=== PATIENT | female | born 1940 | race Caucasian/White ===

== ENCOUNTER 2024-01-07 11:06 | Inpatient (IN) | payer MEDICARE, BC, SELFPAY ==
[2024-01-05] VITALS (8 sets, daily range): BP systolic 88–133; BP diastolic 60–87; BMI 24.8
[2024-01-05 18:07] LABS: Glucose - Point of Care 145 mg/dl (70-99)
--- NOTE | 2024-01-05 18:20 | ED.GENMED ---
History of Present Illness
<Destiney Schaffer LUNCHROOM MONITOR - Last Filed: 01/05/24 23:27>
General
Chief Complaint: Swelling
Source: patient and [facility] records
Exam Limitations: dementia
Time Seen by Provider: 01/05/24 18:15
History of Present Illness
History of Present Illness:
83-year-old female from [facility] with history of ambulatory dysfunction, anxiety, dementia, HTN presents for anterior neck swelling. She is a poor historian due to dementia.She denies pain, knows she's 'in a hospital.'
States 'sometimes' when asked if her neck or throat hurt.
Past History
<Destiney Schaffer LUNCHROOM MONITOR - Last Filed: 01/05/24 23:27>
Past History
ED Past Medical History: HTN and Psychiatric (Dementia)
ED Past Surgical History: Cholecystectomy and Gynecological (-)
Social History
Personal:
Living: with family
Employment: Employed (works at [email or web address]. Has been there for years, nothing different done at work.)
Review of Systems
<Destiney Schaffer LUNCHROOM MONITOR - Last Filed: 01/05/24 23:27>
Review of Systems
Allergies reviewed?: Yes
All Other Systems: ROS reviewed and negative except as documented in HPI and ROS
Constitutional: Denies fever
EENT: Reports other (swelling anterior neck); Denies sore throat
Respiratory: Denies cough or trouble breathing
Cardiac: Denies chest pain
ABD/GI: Denies abdominal pain, vomiting or diarrhea
: Reports incontinence
Musculoskeletal: Denies edema
Phy Exam
<Destiney Schaffer, LUNCHROOM MONITOR - Last Filed: 01/05/24 23:27>
Physical Exam
Physical Exam:
GENERAL: No acute distress. Alert, oriented to name, 'hospital.'
CONSTITUTIONAL: Afebrile.
EYES: PERRL, conjunctivae normal
Neck: mildly erythematous large firm mass anterior neck, tender to palpate.
ENMT: moist mucus membranes, No swelling of tongue or sub ungual area. Pharynx nl, speaking and swallowing well
RESPIRATORY: Regular respirations, nonlabored, lungs clear.
CARDIOVASCULAR: Regular rate and rhythm, no murmurs, no rubs.
GI: Soft, nontender, normal BS
MUSCULOSKELETAL: Well perfused. No edema
SKIN: Warm, dry, pink
PSYCH: Normal mood and affect.
NEUROLOGIC: Awake, alert and oriented x 2. Demented. No focal neurological deficits
Scores
<Destiney Schaffer, LUNCHROOM MONITOR - Last Filed: 01/05/24 23:27>
Heart Failure Risk
Heart Failure Risk Score: Not Applicable
Course
<Destiney Schaffer, LUNCHROOM MONITOR - Last Filed: 01/05/24 23:27>
Orders/Labs/Results
Orders:
Orders
01/05/24 18:20
0.9% Sodium Chloride 500 ml [Nss] 500 ml IV BOLUS
01/05/24 19:14
Complete Blood Count/With Diff Urgent
Comprehensive Metabolic Panel Urgent
01/05/24 20:07
CT Neck With Iv Contrast Urgent
Comment:
Reason For Exam: large mass anterior neck
01/05/24 21:26
Clindamycin 600 mg/50 ml [Cleocin] 600 mg in 50 ml IV NOW
01/05/24 22:06
Dexamethasone Sod Phosphate [Decadron] 10 mg IV NOW STA
01/05/24 22:11
ENT CONSULT Urgent
Consulting Provider: Zev Myers
Was physician already notified: Yes
Reason for Consult: neck swelling, sialadenitis parotid and submandibular
01/05/24 23:00
Flush (0.9% Sodium Chloride) [Flush (Nss)] See Dose Instructions IV PER PROTOCOL
01/06/24 01:39
HydrOXYZINE [Atarax] 25 mg PO Q6HPRN PRN
01/06/24 01:40
Admit/Transfer Patient As Directed
Co-Sign Provider:
Level of Care: Observation services
Assign to:: Medical/Surgical
Physician / Group: hospitalist
Diagnosis: sialadenitis
01/06/24 01:41
Code Status As Directed
Resuscitation Status: Full Code
PRN Pain Medication Management As Directed
May give lesser potent ordered pain med per pt: Yes
preference::
Protocol:: Medication orders for pain may be administered in a
manner that supports deferring to patient preference
when the pt is:
- Requesting an ordered lesser potent pain medication.
Least to most potent pain medications are defined
as: acetaminophen < NSAID < tramadol < opioids
(morphine, oxycodone, hydromorphone).
- Requesting a lesser dose of the same medication IF
ORDERED.
- Requesting a less intrusive route of administration
if both routes are prescribed by the provider (PO <
IV).
01/06/24 01:57
Acetaminophen [Tylenol] 650 mg PO Q4HPRN PRN
Bisacodyl [Dulcolax] 10 mg RECTAL [id number] PRN
Docusate W/Senna [Senokot-S] 1 tablet PO BIDPRN PRN
Polyethylene Glycol Powder [Miralax] 17 grams PO DAILYPRN PRN
01/06/24 01:57
Activity As Directed
Activity Level: With Assistance
Vital Signs As Directed
Frequency: Per unit guidelines
DX Deep Vein Thrombosis Video Routine
01/06/24 05:52
Basic Metabolic Panel IN AM
Complete Blood Count/No Diff IN AM
01/06/24 Breakfast
Regular
At Your Request: Full Participation
Ampicillin/Sulbactam 3 G [Unasyn] 3 gm 0.9% Sodium Chloride 100 ml [Nss] 100 ml IV Q6H
01/06/24 08:00
Atenolol [Tenormin] 50 mg PO DAILY
Buspirone [Buspar] 5 mg PO BID
Donepezil [Aricept] 5 mg PO DAILY
01/06/24 18:00
Enoxaparin Sodium [Lovenox] 40 mg SC QPM
Abnormal Lab Results
01/05/24 01/05/24
18:01 19:14
WBC 20.9 H 10^3/uL
(4.8-10.8)
RBC 3.90 L 10^6/uL
(4.20-5.40)
Hct 36.0 L %
(37.0-47.0)
MCH 31.3 H pg
(27.0-31.0)
Abs Immat Gran (auto) 0.1 H 10^3/uL
(0-0.05)
Absolute Neuts (auto) 16.8 H 10^3/uL
(1.4-6.5)
Absolute Monos (auto) 0.9 H 10^3/uL
(0.1-0.6)
Immature Gran % 0.6 H %
(0-0.5)
Neutrophils % 80.7 H %
(42.2-75.2)
Lymphocytes % 14.1 L %
(20.5-51.1)
Potassium 3.2 L mmol/L
(3.5-5.1)
Chloride 96 L mmol/L
(98-107)
BUN 27 H mg/dl
(7-17)
Glucose 127 H mg/dl
(70-99)
Albumin 3.2 L g/dl
(3.5-5.0)
POC Glucose 145 H mg/dl
(70-99)
01/05/24 19:14
01/05/24 19:14
Vital Signs
Initial and Last Documented VS:
Initial Vital Signs
Temp Pulse Resp BP Pulse Ox
98.2 F 88 18 88/60 100
01/05/24 18:04 01/05/24 18:04 01/05/24 18:04 01/05/24 18:04 01/05/24 18:04
Last Documented Vital Signs
Temp Pulse Resp BP Pulse Ox
98.1 F 71 16 123/61 95
01/06/24 09:11 01/06/24 09:11 01/06/24 09:11 01/06/24 07:00 01/06/24 11:22
<Mabel Everett MD - Last Filed: 01/06/24 12:34>
Orders/Labs/Results
Orders:
Orders
01/05/24 18:20
0.9% Sodium Chloride 500 ml [Nss] 500 ml IV BOLUS
01/05/24 19:14
Complete Blood Count/With Diff Urgent
Comprehensive Metabolic Panel Urgent
01/05/24 20:07
CT Neck With Iv Contrast Urgent
Comment:
Reason For Exam: large mass anterior neck
01/05/24 21:26
Clindamycin 600 mg/50 ml [Cleocin] 600 mg in 50 ml IV NOW
01/05/24 22:06
Dexamethasone Sod Phosphate [Decadron] 10 mg IV NOW STA
01/05/24 22:11
ENT CONSULT Urgent
Consulting Provider: Zev Myers
Was physician already notified: Yes
Reason for Consult: neck swelling, sialadenitis parotid and submandibular
01/05/24 23:00
Flush (0.9% Sodium Chloride) [Flush (Nss)] See Dose Instructions IV PER PROTOCOL
01/06/24 01:39
HydrOXYZINE [Atarax] 25 mg PO Q6HPRN PRN
01/06/24 01:40
Admit/Transfer Patient As Directed
Co-Sign Provider:
Level of Care: Observation services
Assign to:: Medical/Surgical
Physician / Group: hospitalist
Diagnosis: sialadenitis
01/06/24 01:41
Code Status As Directed
Resuscitation Status: Full Code
PRN Pain Medication Management As Directed
May give lesser potent ordered pain med per pt: Yes
preference::
Protocol:: Medication orders for pain may be administered in a
manner that supports deferring to patient preference
when the pt is:
- Requesting an ordered lesser potent pain medication.
Least to most potent pain medications are defined
as: acetaminophen < NSAID < tramadol < opioids
(morphine, oxycodone, hydromorphone).
- Requesting a lesser dose of the same medication IF
ORDERED.
- Requesting a less intrusive route of administration
if both routes are prescribed by the provider (PO <
IV).
01/06/24 01:57
Acetaminophen [Tylenol] 650 mg PO Q4HPRN PRN
Bisacodyl [Dulcolax] 10 mg RECTAL [id number] PRN
Docusate W/Senna [Senokot-S] 1 tablet PO BIDPRN PRN
Polyethylene Glycol Powder [Miralax] 17 grams PO DAILYPRN PRN
01/06/24 01:57
Activity As Directed
Activity Level: With Assistance
Vital Signs As Directed
Frequency: Per unit guidelines
DX Deep Vein Thrombosis Video Routine
01/06/24 05:52
Basic Metabolic Panel IN AM
Complete Blood Count/No Diff IN AM
01/06/24 Breakfast
Regular
At Your Request: Full Participation
Ampicillin/Sulbactam 3 G [Unasyn] 3 gm 0.9% Sodium Chloride 100 ml [Nss] 100 ml IV Q6H
01/06/24 08:00
Atenolol [Tenormin] 50 mg PO DAILY
Buspirone [Buspar] 5 mg PO BID
Donepezil [Aricept] 5 mg PO DAILY
01/06/24 18:00
Enoxaparin Sodium [Lovenox] 40 mg SC QPM
Abnormal Lab Results
01/05/24 01/05/24
18:01 19:14
WBC 20.9 H 10^3/uL
(4.8-10.8)
RBC 3.90 L 10^6/uL
(4.20-5.40)
Hct 36.0 L %
(37.0-47.0)
MCH 31.3 H pg
(27.0-31.0)
Abs Immat Gran (auto) 0.1 H 10^3/uL
(0-0.05)
Absolute Neuts (auto) 16.8 H 10^3/uL
(1.4-6.5)
Absolute Monos (auto) 0.9 H 10^3/uL
(0.1-0.6)
Immature Gran % 0.6 H %
(0-0.5)
Neutrophils % 80.7 H %
(42.2-75.2)
Lymphocytes % 14.1 L %
(20.5-51.1)
Potassium 3.2 L mmol/L
(3.5-5.1)
Chloride 96 L mmol/L
(98-107)
BUN 27 H mg/dl
(7-17)
Glucose 127 H mg/dl
(70-99)
Albumin 3.2 L g/dl
(3.5-5.0)
POC Glucose 145 H mg/dl
(70-99)
01/05/24 19:14
01/05/24 19:14
Vital Signs
Initial and Last Documented VS:
Initial Vital Signs
Temp Pulse Resp BP Pulse Ox
98.2 F 88 18 88/60 100
01/05/24 18:04 01/05/24 18:04 01/05/24 18:04 01/05/24 18:04 01/05/24 18:04
Last Documented Vital Signs
Temp Pulse Resp BP Pulse Ox
98.1 F 71 16 123/61 95
01/06/24 09:11 01/06/24 09:11 01/06/24 09:11 01/06/24 07:00 01/06/24 11:22
<Destiney Schaffer, LUNCHROOM MONITOR - Last Filed: 01/05/24 23:27>
MDM/Problems Addressed
Differential Diagnosis Includes:
thyroid nodule, neoplasm, Yong's angina
MDM/Problems Addressed:
83-year-old female from [facility] with history of ambulatory dysfunction, anxiety, dementia, HTN presents for anterior neck swelling. She is a poor historian due to dementia.She denies pain, knows she's 'in a hospital.'
States 'sometimes' when asked if her neck or throat hurt.
Afebrile, NAD
Large firm palpable mass anterior neck with mild erythema
Temp 100.6
6:15 p.m.
BP initially documented 88/60 rechecked by this examiner: BP 120/64 HR 76
CBC: WBC 20.9
CMP: Potassium 3.2. BUN 27 with no clinically significant abnormality
Dr. Everett in to evaluate
Pt remains stable, no airway compromise
10:[address] neck radiology report read: IMPRESSION: Sialadenitis involving the left parotid and submandibular glands. Associated moderate surrounding inflammation but no associated abscess or stones.
Hospitalist and ENT notified of admission. ENT consult in .
Pt remains stable, no airway compromise
<Destiney V. Day, LUNCHROOM MONITOR - Last Filed: 01/05/24 23:27>
*Critical Care Note
Total Time (30-74mins, 75-104mins- exclusive of procedures): Not Applicable
ED Attending Note
<Destiney Schaffer NP - Last Filed: 01/05/24 23:27>
-
Portions of this chart may have been created with voice recognition software.� Occasional wrong word or��sound alike� substitutions may have occurred due to the inherent limitations of voice recognition software.
<Mabel Everett MD - Last Filed: 01/06/24 12:34>
ED Attending Note
Patient seen and examined by attending physician: Yes
I performed the substantive portion of visit, reviewed & personally made and approve the management plan that is documented in note by myself or JUAN JOSE.: Yes
ED Attending Note:
83-year-old female presents emergency department with neck swelling, unclear exactly when it started but patient states about a week ago. She denies recent dental procedures. She denies trouble swallowing. Voice is clear. On exam, patient has
obvious swelling noted to the submental area midline and to the left, firm to the touch, no fluctuance or crepitus, no floor of mouth elevation, does have associated redness and warmth over this area. Trachea is midline. Uvula midline, no trismus
or drool. CT pending, in interim will begin IV clindamycin in anticipation of likely infectious process, airway stable at this time.
Discharge Plan
Departure
Patient Disposition: Admit
Date of Disposition: 01/05/24
Time of Disposition: 22:06
Admit to: IMU
Presentation/result/management discussed w/ accepting MD/DO: Hospitalist
Condition: Fair
Discharge Problem:
Sialectasia of parotid gland, Sialoadenitis of sublingual gland
Interventions
Interventions:
*General Assessment Last Done: 01/05/24 19:07
*Neglect/Abuse Screening Last Done: 01/05/24 18:03
ED- Fall Risk Assessment Last Done: 01/05/24 19:07
*ED COVID-19 Vaccine History Last Done: 01/05/24 19:07
ED- Cardiac Assessment Last Done: 01/05/24 19:07
ED- Pulmonary Assessment Last Done: 01/05/24 19:07
ED-Skin Assessment Last Done: 01/05/24 19:07
[2024-01-05] MEDS: NSS 500 IV (19:23)
[2024-01-05 19:24] LABS: % Basophils 0.2 % (0-2); % Eosinophils 0.2 % (0-6); % Immature Granulocytes 0.6 % (0-0.5); % Lymphocytes 14.1 % (20.5-51.1); % Monocytes 4.2 % (1.7-9.3); % Neutrophils 80.7 % (42.2-75.2); Absolute Eosinophils 0.1 10^3/uL (0-0.7); Absolute Immature Granulocytes 0.1 10^3/uL (0-0.05); Absolute Lymphocytes 2.9 10^3/uL (1.2-3.4); Absolute Monocytes 0.9 10^3/uL (0.1-0.6); Absolute Neutrophils 16.8 10^3/uL (1.4-6.5); Hemoglobin 12.2 g/dL (12.0-16.0); Mean Corp Hgb Conc. 33.9 g/dL (33.0-37.0); Mean Corpuscular Hgb 31.3 pg (27.0-31.0); Mean Corpuscular Volume 92.3 fL (81.0-99.0); Mean Platelet Volume 8.7 fL (7.4-10.4); Nucleated Red Blood Cells % 0 %; Platelet Count 350 10^3/uL (130-400); Red Cell Dist. Width 13.2 % (11.5-14.5); White Blood Cell Count 20.9 10^3/uL (4.8-10.8)
[2024-01-05 19:42] LABS: ALT (SGPT) 13 U/L (0-35); AST (SGOT) 19 U/L (14-36); Albumin 3.2 g/dl (3.5-5.0); Alkaline Phosphatase 112 U/L (38-126); Blood Urea Nitrogen 27 mg/dl (7-17); Calcium 8.7 mg/dl (8.4-10.2); Carbon Dioxide 26 mmol/L (22-30); Chloride 96 mmol/L (98-107); Estimated Creatinine Clearance 44 ml/min; Glucose 127 mg/dl (70-99); Potassium 3.2 mmol/L (3.5-5.1); Sodium 138 mmol/L (135-145); Total Bilirubin 0.8 mg/dl (0.2-1.3); Total Protein 6.3 g/dl (6.3-8.2); eGFR > 60.00
[2024-01-05] MEDS: CLEOCIN 50 IV (21:36)
[2024-01-05] MEDS: DECADRON 10 MG IV (22:57)
[2024-01-06 01:12] VITALS: BP 125/62
--- NOTE | 2024-01-06 01:31 | HPS.HSE ---
Family Physician
-
Family Physician: Tereso Weinstein
Chief Complaint
-
neck swelling
History of Present Illness
This is an 83-year-old female with history of dementia, recurrent falls, anxiety who currently is at care home and is transferred for swelling in the neck.
Patient is unable to provide any significant history. She has a clear voice. Denies neck pain. Denies any recent procedures. She denies trouble swallowing. Per records it has been no fevers or chills.
In ED, patient has obvious swelling noted to the submental area midline and to the left, firm to the touch, no fluctuance or crepitus, no floor of mouth elevation, does have associated redness and warmth over this area. Trachea is midline. Uvula
midline, no trismus or drool.
She was afebrile, blood pressure 122/73 with a pulse of 1 5 and she was at 90% on room air. White count was 21,000 with a normal hemoglobin and blood counts. Potassium was 3.2 with the rest of the chemistry is unremarkable.
CT of the neck shows sialadenitis on the left parotid and submandibular glands. There was no abscess or stones noted.
Medical History
Past Medical History
Past Medical History: Reports Dementia and HTN
Additional Past Medical History:
Anxiety
Past Surgical History: Reports None
Social History
Unable to obtain full social history at this time due to: Dementia
Tobacco: Non-smoker
Drug: None
Living: Snf
Employment: Disabled
Family History
Family History: Not pertinent
Allergies / Home Medications
Allergies reflects when Allergies were last updated in [employer].
Home Medications with original date entered in [employer]
Allergy/Medication List:
Allergies
Allergy/AdvReac Type Severity Reaction Status Date / Time
erythromycin base Allergy Unknown WIERD Verified 11/11/23 11:34
[Erythromycin Base] FEELING
Home Medications
atenolol 50 mg tablet 50 mg PO DAILY 06/07/08
buspirone 5 mg tablet 5 mg PO BID 01/05/24
donepezil 5 mg tablet 5 mg PO DAILY 01/05/24
hydroxyzine HCl 25 mg tablet 25 mg PO Q6HPRN PRN anxiety management 01/05/24
magnesium hydroxide 400 mg/5 mL oral suspension (Milk of Magnesia) 30 ml PO DAILYPRN PRN constipation 01/05/24
Review of Systems
-
Unable to obtain full review of systems at this time due to: Dementia
Physical Exam
Vital Signs
Vital Signs
Temp Pulse Resp BP Pulse Ox
98.2 F 77 13 133/77 98
01/05/24 18:04 01/05/24 20:15 01/05/24 19:30 01/05/24 21:43 01/05/24 19:16
Physical Exam
General: Well Developed, Well Nourished, No Apparent Distress and Comfortable
HEENT: NormoCephalic, Anicteric, Moist mucous membranes, Atraumatic, PERRLA and Other (swelling noted to the submental area midline and to the left, firm to the touch, no fluctuance or crepitus, no floor of mouth elevation, does have associated
redness and warmth over this area)
Respiratory: Clear
Cardiac: S1/S2 and Regular Rhythm
Breast: Deferred by me
GI: Soft, Non Tender, Non Distended and Normal Bowel Sounds
Rectal: Deferred by Provider
Genito-urinary: Deferred by me
Musculoskeletal: No Clubbing, No Cyanosis and No Edema
Skin: Warm
Neuro: Alert
Hematologic/Lymphatic: No Lymphadenopathy
Psych: Confused
Laboratory Results
-
01/05/24 19:14
01/05/24 19:14
Laboratory Results
Total Bilirubin 0.8 mg/dl (0.2-1.3) 01/05/24 19:14
AST 19 U/L (14-36) 01/05/24 19:14
ALT 13 U/L (0-35) 01/05/24 19:14
Alkaline Phosphatase 112 U/L (38-126) 01/05/24 19:14
Data Reviewed
-
CT Scan: Report Reviewed by me
Lab Data: Labs Reviewed by me
Old Records: Reviewed
Impression/Plan
-
IMPRESSION:
83-year-old with history of dementia, hypertension, anxiety and frequent falls who was brought in from care home with and neck swelling on the left side of her neck. ED evaluation and CT scan is consistent with sialoadenitis involving the left
parotid and submandibular glands. There is moderate surrounding inflammation but no stones or abscess. The only abnormalities on the labs are leukocytosis of 20,000.
PLAN:
Sialadenitis - Left sided parotid and mandibular gland involvement without stones. No abscess. In the absence of stones this typically [id number] adult and of necessary with fever and chills which absent in this patient.
- admit to med/surg
- iv unasyn for now, no further decadron
- ENT consult
- diet as tolerated and monitor for abscess development
- will continue her usual home meds
- electrolyte replacement
DVT PPX - lovenox
Full Code
[2024-01-06 06:00] VITALS: BP 118/62
[2024-01-06] MEDS: UNASYN IV ×4 (06:26→23:03)
[2024-01-06 06:41] LABS: Blood Urea Nitrogen 28 mg/dl (7-17); Calcium 8.4 mg/dl (8.4-10.2); Carbon Dioxide 21 mmol/L (22-30); Chloride 100 mmol/L (98-107); Estimated Creatinine Clearance 56 ml/min; Glucose 158 mg/dl (70-99); Potassium 2.9 mmol/L (3.5-5.1); Sodium 139 mmol/L (135-145); eGFR > 60.00
[2024-01-06 06:45] LABS: Hematocrit 31.7 % (37.0-47.0); Hemoglobin 11.3 g/dL (12.0-16.0); Mean Corp Hgb Conc. 35.6 g/dL (33.0-37.0); Mean Corpuscular Volume 86.8 fL (81.0-99.0); Mean Platelet Volume 8.5 fL (7.4-10.4); Platelet Count 277 10^3/uL (130-400); Red Blood Cell Count 3.65 10^6/uL (4.20-5.40); Red Cell Dist. Width 13.2 % (11.5-14.5)
[2024-01-06 07:00] VITALS: BP 123/61
--- NOTE | 2024-01-06 08:29 | CON.MD ---
Consultation - Medical
-
Chief complaint: Left facial swelling
History of present illness: This patient is an 83-year-old woman with dementia who lives at a intermediate. She also has a history of anxiety. She presented to the emergency room with left facial swelling. CT scan showed what appears to be left
submandibular and parotid sialoadenitis. There does not appear to be evidence of abscess. No stone was noted. The patient cannot provide a history. It is not clear whether the patient has never had problems with this in the past. She presented
with an elevated white count.
Chronic illnesses:
Sialadenitis
Sial ectasia of parotid gland
Pathologic fracture of left fibula due to osteoporosis
Hyponatremia
Dementia with behavioral disturbance
Acute confusion
Frequent falls
Ambulatory dysfunction
Need for manager social media intervention
Hospitalization: The patient is currently in the emergency room receiving intravenous antibiotics for her current problem.
Family history: Patient is a poor historian and this could not be obtained
Social history: The patient is a non-smoker
Medications:
Atenolol 50 mg p.o. daily
Buspirone 5 mg p.o. twice daily
Donepezil 5 mg p.o. daily
Hydroxyzine 25 mg p.o. every 6 hours as needed
Magnesium hydroxide 30 mL p.o. daily as needed
Allergies: Erythromycin
Review of systems: Positive for left facial swelling and tenderness, negative for respiratory distress
Physical examination:
Head: Left facial swelling and tenderness
Eyes: Extraocular movements are intact
Ears: Right ear is clear but left ear shows a cerumen impaction and the eardrum is not visible
Nose: Deviated septum and pale swelling consistent with allergies but no evidence of sinus infection
Oral cavity: Purulent drainage without stone palpable in left submandibular and left parotid ducts otherwise oral cavity normal
Neck: Left submandibular gland swelling with shotty adenopathy, left parotid swelling
Salivary glands: Left parotid gland and submandibular gland swelling and tenderness with purulent drainage through the ducts into the mouth, no stone palpable
Neurologic exam: The patient has dementia but can answer simple questions
Impression/plan: The patient has left submandibular and parotid gland swelling consistent with sialoadenitis. There is purulent drainage from the ducts and no stone is palpable. This is often due to dehydration and the causative organism is
generally Staphylococcus aureus. Clindamycin is an appropriate antibiotic for this problem. Might also benefit from IV hydration and sialagogues. I will plan on seeing the patient in a few days if she is still hospitalized to gauge her
improvement.
[2024-01-06] MEDS: ARICEPT PO (09:10)
[2024-01-06] MEDS: TENORMIN PO (09:10)
[2024-01-06] MEDS: BUSPAR PO ×2 (09:10→19:27)
--- NOTE | 2024-01-06 13:55 | CM ---
CM reviewed medical records. CM confirmed that patient is LTC at [facility]. Plan to return to [facility] on discharge.
[facility]
Report
[phone]
[2024-01-06 14:36] VITALS: BP 132/75; BMI 24.6
--- NOTE | 2024-01-06 14:48 | W.PN.UPDATE ---
Update Note
Progress Note Update
Seen by Dr. Ruff this morning.
Admitted for left partoid and submandibular gland swelling ? sialadenitis .
Seen by ENT this morning who seems to agree with it.
CW ABX and follow course.
[2024-01-06] MEDS: LOVENOX 40 MG SC (17:10)
[2024-01-06 23:15] VITALS: BP 140/74
--- NOTE | 2024-01-07 04:05 | DOWNTIME ---
There was a [employer] Client Community Services Manager Downtime on 01/07/2024 from 0100 to 01/07/2024 at 0355. Downtime documentation of patient's care, including medication administrations, has been reconciled in the electronic record per guidelines. Refer to the
patient's paper chart under the miscellaneous tab to see printed paper medication records and downtime forms.
[2024-01-07] MEDS: UNASYN IV ×4 (05:01→23:10)
[2024-01-07 08:07] VITALS: BP 146/91
[2024-01-07] MEDS: TENORMIN PO (10:00)
[2024-01-07] MEDS: ARICEPT PO (10:00)
[2024-01-07] MEDS: BUSPAR PO ×2 (10:00→19:17)
--- NOTE | 2024-01-07 11:02 | PTOTSP ---
Speech Therapy Evaluation
Pt with moderate oral stage dysphagia and suspected at least mild stage pharyngeal stage dysphagia. Pt accepted trials of ice chips, teaspoon of thin liquids, and 1/2 teaspoon of puree. Pt with minimal oral manipulation of presented trials and
intermittent expectoration. Pt is at an increased risk for aspiration due to poor tolerance of PO trials, reduced secretion management, poor oral care, and moderate inflammation in neck.
Recommend:
1. Temporary NPO
2. Medications via non oral route
3. Oral care 3x/day
4. Ongoing dysphagia tx at the acute care level
[2024-01-07 16:01] VITALS: BP 150/78
[2024-01-07] MEDS: LOVENOX 40 MG SC (17:13)
--- NOTE | 2024-01-07 17:26 | W.PN.HOSP.TC ---
Addendum entered and electronically signed by Quentin Merino MD 01/07/24 17:30:
Hypokalemia -replete
Original Note:
Today's Communication/Plan
-
see plan above
Assessment / Plan
Assessment / Plan
IMPRESSION:
83-year-old with history of dementia, hypertension, anxiety and frequent falls who was brought in from detention with and neck swelling on the left side of her neck. ED evaluation and CT scan is consistent with sialoadenitis involving the left
parotid and submandibular glands. There is moderate surrounding inflammation but no stones or abscess. The only abnormalities on the labs are leukocytosis of 20,000.
PLAN:
Sialadenitis - Left sided parotid and mandibular gland involvement without stones. No abscess. In the absence of stones this typically obdkizr-nkhn-mkg adult and of necessary with fever and chills which absent in this patient.
-cw IV fluids as she is NPO
- iv unasyn for now, no further decadron
- ENT consult apppreciated
- will continue her usual home meds
- electrolyte replacement
DVT PPX - lovenox
Full Code
Anticipated Discharge: > 48 hours
Subjective/Interval History
-
Date of Service: January 07, 2024
Opens eyes to commands and follows commands
Not much conversive
Did say thanks at the end of the visit
Objective Data
-
Vital Signs:
Vital Signs
Temp Pulse Resp BP Pulse Ox
98.1 F 81 18 150/78 92
01/07/24 16:01 01/07/24 16:01 01/07/24 16:01 01/07/24 16:01 01/07/24 16:01
I&O
01/06/24 01/07/24 01/08/24
06:59 06:59 06:59
Intake Total 250 / 250
Output Total 200 / 200
Balance 250 / 250 -200 / -200
Review of Systems
-
Unable to obtain full review of systems at this time due to: Other (lethargy)
Physical Exam
-
General: Comfortable
HEENT: Other (swollen and tender left parotid and SM area )
Respiratory: Non Labored Respirations; Negative Accessory Resp Muscle Use
Neuro: Negative Alert (bit lethargic)
Psych: Calm
Data Reviewed
-
Labs: Labs Reviewed by me
[2024-01-07] MEDS: 0.45%NACL 1000 IV (18:20)
[2024-01-07] MEDS: KCL 270 MEQ IV (18:21)
[2024-01-07 23:10] VITALS: BP 155/76
[2024-01-08] MEDS: UNASYN IV ×4 (05:00→23:14)
[2024-01-08] MEDS: 0.45%NACL 1000 IV ×2 (05:00→16:29)
[2024-01-08 06:06] LABS: Hematocrit 26.5 % (37.0-47.0); Hemoglobin 9.6 g/dL (12.0-16.0); Mean Corp Hgb Conc. 36.2 g/dL (33.0-37.0); Mean Corpuscular Hgb 31.6 pg (27.0-31.0); Mean Corpuscular Volume 87.2 fL (81.0-99.0); Mean Platelet Volume 8.8 fL (7.4-10.4); Platelet Count 187 10^3/uL (130-400); Red Blood Cell Count 3.04 10^6/uL (4.20-5.40); Red Cell Dist. Width 13.4 % (11.5-14.5); White Blood Cell Count 13.6 10^3/uL (4.8-10.8)
[2024-01-08 06:28] LABS: Blood Urea Nitrogen 35 mg/dl (7-17); Calcium 7.9 mg/dl (8.4-10.2); Carbon Dioxide 18 mmol/L (22-30); Chloride 109 mmol/L (98-107); Estimated Creatinine Clearance 56 ml/min; Glucose 113 mg/dl (70-99); Potassium 3.5 mmol/L (3.5-5.1); Sodium 146 mmol/L (135-145); eGFR > 60.00
[2024-01-08 06:47] VITALS: BP 149/73
[2024-01-08] MEDS: TENORMIN PO ×2 (09:27→09:32)
[2024-01-08] MEDS: ARICEPT PO ×2 (09:28→09:31)
[2024-01-08] MEDS: BUSPAR PO ×3 (09:28→19:34)
--- NOTE | 2024-01-08 11:22 | W.PN.HOSP.TC ---
Today's Communication/Plan
-
see plan above
Assessment / Plan
Assessment / Plan
IMPRESSION:
83-year-old with history of dementia, hypertension, anxiety and frequent falls who was brought in from custodial with and neck swelling on the left side of her neck. ED evaluation and CT scan is consistent with sialoadenitis involving the left
parotid and submandibular glands. There is moderate surrounding inflammation but no stones or abscess. The only abnormalities on the labs are leukocytosis of 20,000.
PLAN:
Sialadenitis - Left sided parotid and mandibular gland involvement without stones. No abscess. In the absence of stones this typically elnvzhc-xnpj-yvr adult and of necessary with fever and chills which absent in this patient.
- Improving WBC, no fevers.
-cw IV fluids as she is NPO
- iv unasyn for now, no further decadron
- ENT consult apppreciated
- will continue her usual home meds
Anemia - acute drop in HH noted . No evidence of external bleeding. Suspect dilutional. Follow for now.
DVT PPX - lovenox
Full Code
Anticipated Discharge: > 48 hours
Subjective/Interval History
-
Date of Service: January 08, 2024
Bit Lethargic;easily arousable .
Not able to converse. Said thank you at the end of the visit.
Objective Data
-
Labs:
Laboratory Results
01/08/24
05:00
WBC 13.6 H
Hgb 9.6 L
Hct 26.5 L
Plt Count 187 D
Sodium 146 H
Potassium 3.5
Chloride 109 H
Carbon Dioxide 18 L
BUN 35 H
Creatinine 0.7
Glucose 113 H
Calcium 7.9 L
Vital Signs:
Vital Signs
Temp Pulse Resp BP Pulse Ox
97.4 F 76 20 149/73 92
01/08/24 06:47 01/08/24 06:47 01/08/24 06:47 01/08/24 06:47 01/08/24 10:03
I&O
01/07/24 01/08/24 01/09/24
06:59 06:59 06:59
Intake Total 1690 / 1690
Output Total 200 / 200 300 / 300
Balance -200 / -200 1390 / 1390
Review of Systems
-
Unable to obtain full review of systems at this time due to: Dementia
Physical Exam
-
General: No Apparent Distress
HEENT: Other (Less swelling in left neck and cheek area but still very tender to touch)
Respiratory: Non Labored Respirations; Negative Accessory Resp Muscle Use
Cardiac: Regular Rhythm and S1/S2
GI: Soft
Neuro: Awake; Negative Alert
Psych: Calm
Data Reviewed
-
Labs: Labs Reviewed by me
[2024-01-08 15:53] VITALS: BP 139/65
--- NOTE | 2024-01-08 16:17 | PTOTSP ---
Speech Therapy Follow up Note:
Pt required thorough oral care via suction toothbrush due to dried thick secretions, mainly on posterior palate. Pt with no overt s/sx of aspiration with ice chips, thins via tsp/cup/straw, or puree, however pt with facial grimacing, prolonged oral
holding, and multiple swallows with puree, therefore unable to rule out pharyngeal stasis with denser material. Pt remains at an increased risk of aspiration due to limited tolerance of PO trials, reduced secretion management, and moderate
inflammation in neck.
Recommend:
1. Initiate thin liquid diet
2. Medications via non oral route
3. Oral care 3x/day
4. Ongoing dysphagia tx at the acute care level
--- NOTE | 2024-01-08 16:21 | W.PN.ENT ---
Today's Communication
-
seen at bedside
Impression / Plan
-
improved sialodenitis
Probably OK for discharge on po antibiotics in 1-2 days (e.g. Bactrim, Augmentin, etc-should cover staphylococcus aureus)
Subjective Data
-
pt has left acute parotitis and submandibular sialodenitis
Objective Data
-
Vital Signs
Temp Pulse Resp BP Pulse Ox
97.8 F 76 20 139/65 93
01/08/24 15:53 01/08/24 15:53 01/08/24 15:53 01/08/24 15:53 01/08/24 15:53
Intake & Output
01/07/24 01/08/24 01/09/24
06:59 06:59 06:59
Intake:
IV fluids (Total) 490 / 490
IV piggybacks 1200 / 1200
Output:
Urine, Voided 200 / 200 300 / 300
Other:
How many times incontinent 1
SMALL amount urine
Lab Results
01/08/24 05:00
01/08/24 05:00
Calcium 7.9 mg/dl (8.4-10.2) L 01/08/24 05:00
Total Bilirubin 0.8 mg/dl (0.2-1.3) 01/05/24 19:14
AST 19 U/L (14-36) 01/05/24 19:14
ALT 13 U/L (0-35) 01/05/24 19:14
Alkaline Phosphatase 112 U/L (38-126) 01/05/24 19:14
Physical Exam
-
left cheek and neck swelling decreased
tenderness decreased
Data Reviewed
-
Radiology Results: Report Reviewed and Image Reviewed
[2024-01-08] MEDS: LOVENOX 40 MG SC (17:44)
[2024-01-08 23:34] VITALS: BP 144/72
[2024-01-09] MEDS: 0.45%NACL 1000 IV ×2 (04:08→13:34)
[2024-01-09] MEDS: UNASYN IV ×4 (05:28→23:50)
[2024-01-09 07:32] VITALS: BP 162/65
[2024-01-09 08:50] LABS: Hematocrit 23.7 % (37.0-47.0); Hemoglobin 8.1 g/dL (12.0-16.0); Mean Corp Hgb Conc. 34.2 g/dL (33.0-37.0); Mean Corpuscular Hgb 30.5 pg (27.0-31.0); Mean Corpuscular Volume 89.1 fL (81.0-99.0); Mean Platelet Volume 8.6 fL (7.4-10.4); Platelet Count 184 10^3/uL (130-400); Red Blood Cell Count 2.66 10^6/uL (4.20-5.40)
[2024-01-09] MEDS: BUSPAR PO ×2 (09:00→22:41)
[2024-01-09] MEDS: ARICEPT PO (09:00)
[2024-01-09] MEDS: TENORMIN PO (09:01)
[2024-01-09 09:23] LABS: Blood Urea Nitrogen 22 mg/dl (7-17); Calcium 7.5 mg/dl (8.4-10.2); Carbon Dioxide 25 mmol/L (22-30); Chloride 107 mmol/L (98-107); Estimated Creatinine Clearance 65 ml/min; Glucose 98 mg/dl (70-99); Potassium 2.5 mmol/L (3.5-5.1); Sodium 143 mmol/L (135-145); eGFR > 60.00
[2024-01-09] MEDS: KCL ELIXIR 40 MEQ PO (09:43)
[2024-01-09] MEDS: KCL 270 MEQ IV (09:47)
--- NOTE | 2024-01-09 11:06 | PTOTSP ---
Speech Therapy Follow-up Note
Pt with improved appearance of oral cavity as demonstrated by decrease in dry secretions and noted moisture in oral cavity. Pt accepted trials of thin liquids via straw and pureed solids. Pt with no overt s/sx of aspiration and a decrease in facial
grimacing, oral holding, and amount of swallows required to clear pureed bolus. Recommend diet upgrade to IDDSI Level 4 (pureed) solids and thin liquids as pt demonstrates improved secretion management, tolerance of PO trials, and decreased
inflammation in neck.
Recommend:
1. Initiate IDDSI Level 4 (puree) and thin liquid diet
2. Medications crushed in puree
3. Assistance/supervision with PO
4. General aspiration precautions
5. Continued oral care 3x/day
6. Continued ST at acute care level to assess tolerance of diet and determine ability to advance diet as able
--- NOTE | 2024-01-09 14:37 | CM ---
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 Bed is being held for her to return when medically cleared.
--- NOTE | 2024-01-09 15:00 | W.PN.HOSP.TC ---
Addendum entered and electronically signed by Quentin Merino MD 01/09/24 15:04:
Hypokalemia -replete
Original Note:
Today's Communication/Plan
-
Heme test stools
Follow HH
CW unasyn
Assessment / Plan
Assessment / Plan
IMPRESSION:
83-year-old with history of dementia, hypertension, anxiety and frequent falls who was brought in from skilled nursing with and neck swelling on the left side of her neck. ED evaluation and CT scan is consistent with sialoadenitis involving the left
parotid and submandibular glands. There is moderate surrounding inflammation but no stones or abscess. The only abnormalities on the labs are leukocytosis of 20,000.
PLAN:
Sialadenitis - Left sided parotid and mandibular gland involvement without stones. No abscess. In the absence of stones this typically ufyrzly-vybh-tde adult and of necessary with fever and chills which absent in this patient.
- Normalized WBC, no fevers.
-DC IV fluids as she in on diet and moist MM of her mouth
- iv unasyn for now, no further decadron
- ENT consult apppreciated
- continue her usual home meds
Anemia - acute drop in HH noted . No evidence of external bleeding.Not on AC. Still suspect dilutional. Follow for now. Check heme test stools.
DVT PPX - lovenox
Full Code
Anticipated Discharge: 24 - 48 hours
Subjective/Interval History
-
Date of Service: January 09, 2024
patient looks better today - awake and holding a conversation ;pleasanlty confused.
Did well with SPT and now on a diet.
Objective Data
-
Labs:
Laboratory Results
01/09/24
08:22
WBC 9.0
Hgb 8.1 L
Hct 23.7 L
Plt Count 184
Sodium 143
Potassium 2.5 L* D
Chloride 107
Carbon Dioxide 25
BUN 22 H
Creatinine 0.6
Glucose 98
Calcium 7.5 L
Vital Signs:
Vital Signs
Temp Pulse Resp BP Pulse Ox
97.8 F 77 16 162/65 95
01/09/24 07:32 01/09/24 07:32 01/09/24 07:32 01/09/24 07:32 01/09/24 07:32
I&O
01/08/24 01/09/24 01/10/24
06:59 06:59 06:59
Intake Total 1690 / 1690 1620 / 1620
Output Total 300 / 300 800 / 800
Balance 1390 / 1390 820 / 820
Review of Systems
-
Unable to obtain full review of systems at this time due to: Dementia
Physical Exam
-
General: Comfortable
HEENT: Moist Mucous Membranes and Other (less tenderness and swelling of partoid and SM glands)
Respiratory: Non Labored Respirations; Negative Accessory Resp Muscle Use
Cardiac: Regular Rhythm and S1/S2
Neuro: Awake and Alert
Psych: Calm and Confused; Negative Agitated
Data Reviewed
-
Labs: Labs Reviewed by me
[2024-01-09 15:50] VITALS: BP 155/81
[2024-01-09] MEDS: LOVENOX 40 MG SC (17:51)
--- NOTE | 2024-01-09 19:40 | PTCARENOTE ---
Potassium 2.5 this morning. Hospitalist notified. Gave 40 meq KCL elixer and 40 meq IV as per order. Calcium 7.5 - Hospitalist aware.
[2024-01-09 23:48] VITALS: BP 155/82
[2024-01-10] MEDS: UNASYN IV ×3 (05:39→18:35)
[2024-01-10 07:12] LABS: Hematocrit 25.4 % (37.0-47.0); Hemoglobin 8.8 g/dL (12.0-16.0); Mean Corp Hgb Conc. 34.6 g/dL (33.0-37.0); Mean Corpuscular Hgb 31.5 pg (27.0-31.0); Mean Platelet Volume 8.4 fL (7.4-10.4); Platelet Count 159 10^3/uL (130-400); Red Blood Cell Count 2.79 10^6/uL (4.20-5.40); Red Cell Dist. Width 13.6 % (11.5-14.5); White Blood Cell Count 8.1 10^3/uL (4.8-10.8)
[2024-01-10 07:25] VITALS: BP 159/76
[2024-01-10 07:49] LABS: Blood Urea Nitrogen 13 mg/dl (7-17); Calcium 7.3 mg/dl (8.4-10.2); Carbon Dioxide 24 mmol/L (22-30); Chloride 104 mmol/L (98-107); Estimated Creatinine Clearance 65 ml/min; Glucose 78 mg/dl (70-99); Potassium 2.7 mmol/L (3.5-5.1); Sodium 142 mmol/L (135-145); eGFR > 60.00
[2024-01-10] MEDS: TENORMIN 50 MG PO (08:53)
[2024-01-10] MEDS: KCL 270 MEQ IV (08:53)
[2024-01-10] MEDS: BUSPAR 5 MG PO ×2 (08:53→20:29)
[2024-01-10] MEDS: ARICEPT 5 MG PO (08:53)
[2024-01-10] MEDS: FLUSH (NSS) 1 FLUSH IV (08:53)
--- NOTE | 2024-01-10 08:53 | W.PN.HOSP.TC ---
Today's Communication/Plan
-
Continue with diet.
Continue with antibiotics
PT eval
DC planning
Assessment / Plan
Assessment / Plan
IMPRESSION:
83-year-old with history of dementia, hypertension, anxiety and frequent falls who was brought in from senior living with and neck swelling on the left side of her neck. ED evaluation and CT scan is consistent with sialoadenitis involving the left
parotid and submandibular glands. There is moderate surrounding inflammation but no stones or abscess. The only abnormalities on the labs are leukocytosis of 20,000.
PLAN:
Sialadenitis - Left sided parotid and mandibular gland involvement without stones. No abscess. In the absence of stones this typically vxoswcp-kjda-sep adult and of necessary with fever and chills which absent in this patient.
- Normalized WBC, no fevers.
-Improving swelling and tenderness of the left parotid and submandibular glands.
-Continue iv unasyn for today.
- ENT consult apppreciated
- continue her usual home meds
Anemia - acute drop in HH noted . No evidence of external bleeding.Not on AC. Still suspect dilutional. Follow for now. Check heme test stools. H&H is up with a discontinue IV fluids.
Hypokalemia-no extrarenal losses-replete potassium.
DVT PPX - lovenox
Full Code
Anticipated Discharge: 24 - 48 hours
Subjective/Interval History
-
Date of Service: January 10, 2024
Patient is alert and oriented to self and person but not place.
She is more conversive than the last couple of days where she was lethargic.
Tolerating diet.
Was not aware that she came in because of salivary gland infection.
Objective Data
-
Labs:
Laboratory Results
01/10/24
06:35
WBC 8.1
Hgb 8.8 L
Hct 25.4 L
Plt Count 159
Sodium 142
Potassium 2.7 L*
Chloride 104
Carbon Dioxide 24
BUN 13
Creatinine 0.5 L
Glucose 78
Calcium 7.3 L
Vital Signs:
Vital Signs
Temp Pulse Resp BP Pulse Ox
98 F 79 16 159/76 99
01/10/24 07:25 01/10/24 07:25 01/10/24 07:25 01/10/24 07:25 01/10/24 07:25
I&O
01/09/24 01/10/24 01/11/24
06:59 06:59 06:59
Intake Total 1620 / 1620 670 / 670
Output Total 800 / 800 1450 / 1450
Balance 820 / 820 -780 / -780
Review of Systems
-
Unable to obtain full review of systems at this time due to: Dementia
Respiratory: Denies Trouble Breathing
Cardiac: Denies Chest Pain
Abdomen/GI: Denies Abdominal Pain, Nausea or Vomiting
Neuro: Denies Dizzy
Physical Exam
-
General: Comfortable
HEENT: Moist Mucous Membranes (As compared to admission) and Other (Decrease the swelling of the parotid and submandibular gland on the left side)
Respiratory: Clear to Auscultation (Anteriorly) and Non Labored Respirations; Negative Accessory Resp Muscle Use
Cardiac: Regular Rhythm and S1/S2
GI: Soft and Nontender
Neuro: Awake, Alert and Oriented
Psych: Calm and Confused
Data Reviewed
-
Labs: Labs Reviewed by me
[2024-01-10] MEDS: SENOKOT-S 1 TABLET PO (08:55)
[2024-01-10] MEDS: KCL ELIXIR 40 MEQ PO (08:55)
[2024-01-10 15:25] VITALS: BP 137/92
[2024-01-10 16:30] VITALS: BP 158/88; PULSE 72; O2SAT 100
[2024-01-10] MEDS: LOVENOX 40 MG SC (18:34)
[2024-01-10 23:47] VITALS: BP 143/72
[2024-01-11] MEDS: UNASYN IV ×4 (00:44→17:11)
[2024-01-11 07:02] LABS: Hematocrit 24.9 % (37.0-47.0); Hemoglobin 8.5 g/dL (12.0-16.0); Mean Corp Hgb Conc. 34.1 g/dL (33.0-37.0); Mean Corpuscular Hgb 29.8 pg (27.0-31.0); Mean Corpuscular Volume 87.4 fL (81.0-99.0); Mean Platelet Volume 8.8 fL (7.4-10.4); Platelet Count 139 10^3/uL (130-400); Red Blood Cell Count 2.85 10^6/uL (4.20-5.40); Red Cell Dist. Width 13.7 % (11.5-14.5); White Blood Cell Count 8.5 10^3/uL (4.8-10.8)
[2024-01-11 07:25] VITALS: BP 159/84
[2024-01-11 07:36] LABS: Blood Urea Nitrogen 10 mg/dl (7-17); Calcium 7.2 mg/dl (8.4-10.2); Carbon Dioxide 21 mmol/L (22-30); Chloride 109 mmol/L (98-107); Estimated Creatinine Clearance 65 ml/min; Glucose 70 mg/dl (70-99); Potassium 3.1 mmol/L (3.5-5.1); Sodium 143 mmol/L (135-145); eGFR > 60.00
[2024-01-11] MEDS: DESENEX/MITRAZOL/ZEASORB 1 APPLIC TOPICAL ×2 (08:12→19:47)
[2024-01-11] MEDS: KCL ELIXIR 40 MEQ PO (08:13)
[2024-01-11] MEDS: BUSPAR 5 MG PO ×2 (08:14→19:46)
[2024-01-11] MEDS: ARICEPT 5 MG PO (08:14)
[2024-01-11] MEDS: TENORMIN 50 MG PO (08:14)
--- NOTE | 2024-01-11 09:12 | W.PN.HOSP.TC ---
Today's Communication/Plan
-
Repeat CT neck
CW Unasyn
Assessment / Plan
Assessment / Plan
IMPRESSION:
83-year-old with history of dementia, hypertension, anxiety and frequent falls who [facility] with and neck swelling on the left side of her neck. ED evaluation and CT scan is consistent with sialoadenitis involving the left
parotid and submandibular glands. There is moderate surrounding inflammation but no stones or abscess. The only abnormalities on the labs are leukocytosis of 20,000.
PLAN:
Sialadenitis - Left sided parotid and mandibular gland involvement without stones. No abscess on adx.
- Normalized WBC, no fevers.
-Improving swelling and tenderness of the left submandibular glands but now seems to have more focality to left parotid gland area. Repeat neck CT to rule out developing abscess.
- Continue iv unasyn .
- ENT consult apppreciated
- continue her usual home meds
Anemia - acute drop in HH noted . No evidence of external bleeding.Not on AC. Still suspect dilutional. HH stable.
Hypokalemia-no extrarenal losses-replete potassium.
DVT PPX - lovenox
Full Code
Anticipated Discharge: 24 - 48 hours
Subjective/Interval History
-
Date of Service: January 11, 2024
Pt says she doesnt feel that good today but cant be more specific why .
Left neck pain is present but says better than it was prior to admission.
Alert but confused about place and events leading on to admission.
Objective Data
-
Labs:
Laboratory Results
01/11/24
06:35
WBC 8.5
Hgb 8.5 L
Hct 24.9 L
Plt Count 139
Sodium 143
Potassium 3.1 L
Chloride 109 H
Carbon Dioxide 21 L
BUN 10
Creatinine 0.5 L
Glucose 70
Calcium 7.2 L
Vital Signs:
Vital Signs
Temp Pulse Resp BP Pulse Ox
97.7 F 83 18 159/84 97
01/11/24 07:25 01/11/24 08:14 01/11/24 07:25 01/11/24 08:14 01/11/24 07:25
I&O
01/10/24 01/11/24 01/12/24
06:59 06:59 06:59
Intake Total 670 / 670 630 / 630
Output Total 1450 / 1450
Balance -780 / -780 630 / 630
Review of Systems
-
Unable to obtain full review of systems at this time due to: Dementia
Physical Exam
-
General: Comfortable
HEENT: Other (left submandibular gland is smaller and less tender; Left parotid area has decreased in size but more prominent in pre auricular area with subtle bluish hue to the skin )
Respiratory: Non Labored Respirations; Negative Accessory Resp Muscle Use
Cardiac: Regular Rhythm and S1/S2
GI: Soft
Neuro: Awake, Alert and Oriented (self and person)
Psych: Calm and Confused; Negative Agitated
Data Reviewed
-
Labs: Labs Reviewed by me
[2024-01-11 11:50] VITALS: BP 128/85; PULSE 88; O2SAT 97
[2024-01-11 15:15] VITALS: BP 164/93
[2024-01-11] MEDS: LOVENOX 40 MG SC (17:11)
[2024-01-11 23:00] VITALS: BP 144/78
[2024-01-12] MEDS: UNASYN IV ×4 (00:42→17:14)
[2024-01-12 07:35] VITALS: BP 165/87
[2024-01-12] MEDS: TENORMIN 50 MG PO (09:04)
[2024-01-12] MEDS: ARICEPT 5 MG PO (09:04)
[2024-01-12] MEDS: BUSPAR 5 MG PO ×2 (09:04→20:57)
[2024-01-12] MEDS: DESENEX/MITRAZOL/ZEASORB 1 APPLIC TOPICAL ×2 (09:05→23:09)
[2024-01-12 15:24] LABS: Iron 78 ug/dl (37-170); Magnesium 1.3 mg/dl (1.6-2.3)
[2024-01-12 15:32] VITALS: BP 130/65
[2024-01-12 15:33] LABS: Percent Saturation 67 % (20-50); Total Iron Binding Capacity 115 ug/dl (265-497)
--- NOTE | 2024-01-12 16:12 | W.PN.HOSP.TC ---
Today's Communication/Plan
-
AB
Replace Mag and K
Possible discharge tomorrow
Assessment / Plan
Assessment / Plan
83-year-old fdc with On the left side CT consistent with cellulitis left parotid and submandibular glands.
Repeat CT-persistent sialadenitis cellulitis of the left parotid and submandibular glands with improvement of associated adjacent and surrounding inflammatory/reactive edema. No abscess.
Left neck mild tenderness only/ No redness
CVS: S1-S2 normal
Chest: CTA B/L
Abdomen: Soft, NT / Bowel sounds present
Extremities: No edema
# Sialadenitis left parotid and submandibular gland without stone.
Continue IV Unasyn
ENT evaluation appreciated
Repeat CT neck
# Hypokalemia-replace
# Hypomagnesemia-replace
# Hypertension-continue atenolol. Pt screams when BP cuff goes off. And tenses. Likely false high readings.
# Anemia- Iron studies and B12
# Dementia-with behavioral disturbances-continue Aricept, BuSpar
# Ambulatory dysfunction
# DVT prophylaxis-Lovenox
# Full code
Discussed with nursing at bedside
Anticipated Discharge: Within 24 hours
Subjective/Interval History
-
Date of Service: January 12, 2024
Objective Data
-
Vital Signs:
Vital Signs
Temp Pulse Resp BP Pulse Ox
97.6 F 77 20 130/65 98
01/12/24 15:25 01/12/24 15:25 01/12/24 15:25 01/12/24 15:32 01/12/24 15:25
I&O
01/11/24 01/12/24 01/13/24
06:59 06:59 06:59
Intake Total 630 / 630 600 / 600
Balance 630 / 630 600 / 600
[2024-01-12] MEDS: MAGNESIUM SULFATE 100 IV (16:57)
[2024-01-12] MEDS: KCL 40 MEQ PO (17:03)
[2024-01-12] MEDS: LOVENOX 40 MG SC (17:04)
[2024-01-12 20:10] LABS: Vitamin D, 25-OH*** 26.2 ng/mL (30-80)
[2024-01-12 20:49] LABS: Vitamin B12 973 pg/ml (239-931)
[2024-01-12] MEDS: KCL 20 MEQ PO (23:08)
[2024-01-12 23:25] VITALS: BP 147/82
[2024-01-13] MEDS: UNASYN IV ×4 (01:19→18:06)
[2024-01-13 07:10] VITALS: BP 141/86
[2024-01-13 08:44] LABS: Blood Urea Nitrogen 6 mg/dl (7-17); Calcium 7.1 mg/dl (8.4-10.2); Carbon Dioxide 27 mmol/L (22-30); Chloride 102 mmol/L (98-107); Estimated Creatinine Clearance 65 ml/min; Glucose 79 mg/dl (70-99); Magnesium 2.3 mg/dl (1.6-2.3); Potassium 3.2 mmol/L (3.5-5.1); Sodium 140 mmol/L (135-145); eGFR > 60.00
--- NOTE | 2024-01-13 09:30 | WOUNDNOTE ---
LEVON RN NOTE: Assessed patient's sacrum and skin folds with nurse Aquino, appears MASD much improved. Nurse agreed with cancel of consult.
[2024-01-13] MEDS: MAGNESIUM OXIDE 500 MG PO (09:41)
[2024-01-13] MEDS: BUSPAR 5 MG PO ×2 (09:41→20:15)
[2024-01-13] MEDS: TENORMIN 50 MG PO (09:41)
[2024-01-13] MEDS: ARICEPT 5 MG PO (09:42)
[2024-01-13] MEDS: DESENEX/MITRAZOL/ZEASORB 1 APPLIC TOPICAL ×2 (09:44→20:22)
[2024-01-13] MEDS: FLORASTOR 250 MG PO ×2 (12:58→20:15)
[2024-01-13] MEDS: KCL 40 MEQ PO (12:58)
--- NOTE | 2024-01-13 13:44 | PN.CDI ---
Addendum entered and electronically signed by Alfredo De Leon MD 01/13/24 18:00:
Documentation is complete at this time.
Original Note:
CDI
- -
CDI:
Physician Documentation Request
Admit Date: 01/07/24 11:06
Dear Doctor Haley,
Please review the following and provide your response in the progress notes.
Clinical Indicators:
PN, 01/10
#Anemia - acute drop in HH noted .
#...No evidence of external bleeding.Not on AC.
#...Still suspect dilutional.
#...HH stable.
PN, 01/11
# Anemia- Iron studies and B12
Laboratory Tests
01/05/24 01/06/24 01/08/24
19:14 05:52 05:00
Hgb 12.2 11.3 L 9.6 L
Hct 36.0 L 31.7 L 26.5 L
01/09/24 01/10/24 01/11/24
08:22 06:35 06:35
Hgb 8.1 L 8.8 L 8.5 L
Hct 23.7 L 25.4 L 24.9 L
Based on the above, please clarify in the progress notes, the appropriate diagnosis, if significant, that supports the above abnormalities and additional evaluation, monitoring and/or treatment rendered:
Precipitous drop in hematocrit and acute anemia
Chronic iron deficiency anemia due to blood loss
Vitamin B deficiency anemia - indicate etiology, such as intrinsic factor deficiency, malabsorption, transcobalamin II deficiency, dietary etc.
Other (please specify)
Use of terms such as suspected, likely, concern for, or probable (associated with a specific diagnosis that is being evaluated, monitored, or treated as if it exists) are acceptable and can be coded in the inpatient setting, when documented at the
time of discharge.
Thank you,
Tami Pitts RN BSN CCDS
CDI Specialist
please contact via tiger text
Please use your independent medical judgment in providing your response.
[2024-01-13 15:18] VITALS: BP 147/70
--- NOTE | 2024-01-13 15:22 | W.PN.HOSP.TC ---
Today's Communication/Plan
-
discharge planning
Assessment / Plan
Assessment / Plan
83-year-old long term with On the left side CT consistent with cellulitis left parotid and submandibular glands.
Repeat CT-persistent sialadenitis cellulitis of the left parotid and submandibular glands with improvement of associated adjacent and surrounding inflammatory/reactive edema. No abscess.
Left neck mild tenderness only/ No redness
CVS: S1-S2 normal
Chest: CTA B/L
Abdomen: Soft, NT / Bowel sounds present
Extremities: No edema
# Sialadenitis left parotid and submandibular gland without stone.
Continue IV Unasyn
ENT evaluation appreciated
Repeat CT neck
# Hypokalemia-replace
# Hypomagnesemia-replaced
# Hypertension-continue atenolol.
# Anemia- Iron studies and B12
# Dementia-with behavioral disturbances-continue Aricept, BuSpar
# Ambulatory dysfunction
# DVT prophylaxis-Lovenox
# Full code
Discussed with nursing at bedside
called both numbers listed. Left message for son.
Anticipated Discharge: Within 24 hours
Subjective/Interval History
-
Date of Service: January 13, 2024
Objective Data
-
Labs:
Laboratory Results
01/13/24
07:47
Sodium 140
Potassium 3.2 L
Chloride 102
Carbon Dioxide 27
BUN 6 L
Creatinine 0.5 L
Glucose 79
Calcium 7.1 L
Vital Signs:
Vital Signs
Temp Pulse Resp BP Pulse Ox
97.5 F 75 18 147/70 97
01/13/24 15:18 01/13/24 15:18 01/13/24 15:18 01/13/24 15:18 01/13/24 15:18
I&O
01/12/24 01/13/24 01/14/24
06:59 06:59 06:59
Intake Total 600 / 600 840 / 840
Balance 600 / 600 840 / 840
--- NOTE | 2024-01-13 16:10 | PTCARENOTE ---
45 mls post void residual via bladder scan.
[2024-01-13] MEDS: LOVENOX 40 MG SC (18:07)
[2024-01-13] MEDS: KCL 20 MEQ PO (22:04)
[2024-01-13 23:00] VITALS: BP 157/101
[2024-01-14] VITALS: BP 153/95
[2024-01-14] MEDS: UNASYN IV ×4 (00:26→18:01)
[2024-01-14 07:25] VITALS: BP 154/75
[2024-01-14] MEDS: KCL 20 MEQ PO (09:20)
[2024-01-14] MEDS: FLORASTOR 250 MG PO ×2 (09:20→20:16)
[2024-01-14] MEDS: BUSPAR 5 MG PO ×2 (09:20→20:17)
[2024-01-14] MEDS: ARICEPT 5 MG PO (09:20)
[2024-01-14] MEDS: TENORMIN 50 MG PO (09:20)
[2024-01-14] MEDS: DESENEX/MITRAZOL/ZEASORB 1 APPLIC TOPICAL ×2 (09:21→20:17)
[2024-01-14 09:31] LABS: Hematocrit 25.8 % (37.0-47.0); Hemoglobin 8.9 g/dL (12.0-16.0); Mean Corp Hgb Conc. 34.5 g/dL (33.0-37.0); Mean Corpuscular Hgb 31.3 pg (27.0-31.0); Mean Corpuscular Volume 90.8 fL (81.0-99.0); Mean Platelet Volume 8.5 fL (7.4-10.4); Platelet Count 127 10^3/uL (130-400); Red Blood Cell Count 2.84 10^6/uL (4.20-5.40); Red Cell Dist. Width 13.9 % (11.5-14.5); White Blood Cell Count 6.1 10^3/uL (4.8-10.8)
[2024-01-14 11:10] LABS: Potassium 4.1 mmol/L (3.5-5.1)
[2024-01-14 15:16] VITALS: BP 135/79
[2024-01-14 15:33] VITALS: BMI 24.6
--- NOTE | 2024-01-14 16:15 | CM ---
Addendum entered by Roya Gibson 01/14/24 16:36:
IMM reviewed with Maricarmen who signed the form today at 16:32.
Original Note:
FLORINDA continues to follow for discharge back to [facility] tomorrow. Will arrange ambulance transport in AM.
--- NOTE | 2024-01-14 16:15 | W.PN.HOSP.TC ---
Today's Communication/Plan
-
Discharge
Assessment / Plan
Assessment / Plan
83-year-old care home with On the left side CT consistent with cellulitis left parotid and submandibular glands.
Repeat CT-persistent sialadenitis cellulitis of the left parotid and submandibular glands with improvement of associated adjacent and surrounding inflammatory/reactive edema. No abscess.
Left neck mild tenderness only/ No redness
CVS: S1-S2 normal
Chest: CTA B/L
Abdomen: Soft, NT / Bowel sounds present
Extremities: No edema
# Sialadenitis left parotid and submandibular gland without stone.
Continue IV Unasyn
ENT evaluation appreciated
Repeat CT neck better
# Hypokalemia-replaced
# Hypomagnesemia-replaced
# Hypertension-continue atenolol.
# Anemia- Iron studies and B12 adequate
# Dementia-with behavioral disturbances-continue Aricept, BuSpar
# Ambulatory dysfunction
# DVT prophylaxis-Lovenox
# Full code
Discussed with nursing at bedside
D/W Case management
Called son again today and discussed and updated.
Anticipated Discharge: Today
Subjective/Interval History
-
Date of Service: January 14, 2024
Objective Data
-
Labs:
Laboratory Results
01/14/24
09:10
WBC 6.1
Hgb 8.9 L
Hct 25.8 L
Plt Count 127 L
Potassium 4.1 D
Vital Signs:
Vital Signs
Temp Pulse Resp BP Pulse Ox
98.5 F 75 20 135/79 97
01/14/24 15:16 01/14/24 15:16 01/14/24 15:16 01/14/24 15:16 01/14/24 15:16
I&O
10/22/24 10/23/24 10/24/24
06:59 06:59 06:59
Intake Total 840 / 840 840 / 840 120 / 120
Balance 840 / 840 840 / 840 120 / 120
--- NOTE | 2024-01-14 16:22 | W.DS.TRANS ---
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
-
Discharge Instructions:
Discharge Diagnosis/Procedures CL adenitis left parotid and submandibular gland
Hypokalemia
Hypomagnesemia
Hypertension
Anemia
Dementia
Ambulatory dysfunction
Additional Diets IDDSI 4 pur�ed diet
Activity As tolerated
Driving Restrictions No driving
Blood Work BMP 2 days, If potassium stable stop to
upplement potassium
Other Services PT,OT
Instructions:
Stand-Alone Forms:
Changes to Home Medications: Yes
Discharge Medications:
DC Medications w/original date entered in [employer]
hydroxyzine HCl 25 mg tablet 25 mg PO Q6HPRN PRN anxiety management 01/05/24
Saccharomyces boulardii 250 mg capsule 250 mg PO BID Supplement #0 caps 01/14/24
acetaminophen 325 mg tablet 650 mg (2 x 325 mg) PO Q4HPRN PRN pain #0 tabs 01/14/24
amoxicillin 875 mg-potassium clavulanate 125 mg tablet 1 tab PO BID Infection #3 tabs 01/14/24
atenolol 50 mg tablet 50 mg PO DAILY Blood pressure #0 tabs 01/14/24
buspirone 5 mg tablet 5 mg PO BID Mental Health/Anxiety #0 tabs 01/14/24
donepezil 5 mg tablet 5 mg PO DAILY dementia #0 tabs 01/14/24
potassium chloride 20 mEq tablet,extended release(part/cryst) 20 meq PO DAILY Electrolyte Repletion #2 tabs 01/14/24
Home Medication Changes
Potassium is new
Amoxicillin is new
Pending Results: No
--- NOTE | 2024-01-14 16:26 | W.PN.UPDATE ---
Update Note
Progress Note Update
Pt refusing to leave tonight.
[2024-01-14] MEDS: LOVENOX 40 MG SC (18:01)
[2024-01-14] MEDS: FLUSH (NSS) 1 FLUSH IV (18:02)
[2024-01-14 23:55] VITALS: BP 155/118
[2024-01-15] MEDS: UNASYN IV ×4 (00:58→17:22)
--- NOTE | 2024-01-15 03:00 | PTCARENOTE ---
Pt @23:55 refused to sit still while attempting to take blood pressure. Pt bp was 155/118. Pt refused to repeat BP and got physical with staff. Pt is resting comfortably w/ call del rosario within reach.
[2024-01-15 07:30] VITALS: BP 125/85
[2024-01-15] MEDS: BUSPAR 5 MG PO (08:52)
[2024-01-15] MEDS: FLORASTOR 250 MG PO (08:52)
[2024-01-15] MEDS: KCL 20 MEQ PO (08:52)
[2024-01-15] MEDS: TENORMIN 50 MG PO (08:52)
[2024-01-15] MEDS: ARICEPT 5 MG PO (08:52)
[2024-01-15] MEDS: ATARAX 25 MG PO (08:54)
[2024-01-15] MEDS: DESENEX/MITRAZOL/ZEASORB 1 APPLIC TOPICAL (08:56)
--- NOTE | 2024-01-15 10:26 | CM ---
Addendum entered by Roya Gibson 01/15/24 15:31:
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 Call placed to Maricarmen's son, Johnnie, to make him aware of plan for discharge back to [facility]. He was thankful for the call and 'glad she is feeling better'.
Original Note:
Maricarmen is ready for discharge back to [facility] today. Ambulance transport requested for return.
CM to notify family and facility of transport time once arranged.
[facility] Report: [phone]
[facility]
--- NOTE | 2024-01-15 11:40 | W.PN.HOSP.TC ---
Addendum entered and electronically signed by Alfredo De Leon MD 01/15/24 14:04:
pureed diet per speech.
Discharge to rehab
PPI added
More than 30 minutes spent in discharge including
Final examination of the patient
Summarizing hospital stay
Instructions for continuing care to all relevant caregivers
Preparation of discharge records, prescriptions, and referral forms
Total time spent (in minutes): 34 min
Original Note:
Today's Communication/Plan
-
Speech to re evaluate as nursing had concern about her swallow.
If stable discharge
Assessment / Plan
Assessment / Plan
83-year-old care home with On the left side CT consistent with cellulitis left parotid and submandibular glands.
Repeat CT-persistent sialadenitis cellulitis of the left parotid and submandibular glands with improvement of associated adjacent and surrounding inflammatory/reactive edema. No abscess.
Left neck mild tenderness only/ No redness
CVS: S1-S2 normal
Chest: CTA B/L
Abdomen: Soft, NT / Bowel sounds present, rectal heme neg , brown stool.
Extremities: No edema
# Sialadenitis left parotid and submandibular gland without stone.
Continue IV Unasyn
ENT evaluation appreciated
Repeat CT neck better
# Hypokalemia-replaced
# Hypomagnesemia-replaced
# Hypertension-continue atenolol.
# Anemia- Iron studies and B12 adequate. Rectal Heme negative. Add PPI . OP GI eval.No active bleed.
# Dementia-with behavioral disturbances-continue Aricept, BuSpar
# Ambulatory dysfunction
# DVT prophylaxis-Lovenox
# Full code
Discussed with nursing at bedside
D/W Case management
Called son yesterday and discussed and updated.
Anticipated Discharge: Today
Subjective/Interval History
-
Date of Service: January 15, 2024
Objective Data
-
Vital Signs:
Vital Signs
Temp Pulse Resp BP Pulse Ox
97.6 F 77 20 125/85 99
01/15/24 07:30 01/15/24 08:52 01/15/24 07:30 01/15/24 08:52 01/15/24 07:30
I&O
01/14/24 01/15/24 01/16/24
06:59 06:59 06:59
Intake Total 840 / 840 600 / 600
Balance 840 / 840 600 / 600
[2024-01-15] MEDS: PROTONIX 40 MG PO (11:49)
--- NOTE | 2024-01-15 14:05 | W.DS.TRANS ---
Addendum entered and electronically signed by lAfredo De Leon MD 01/15/24 14:31:
Dictation- [id number]
Original Note:
DC Summary - Press Assistant
-
Discharge Instructions:
Discharge Diagnosis/Procedures CL adenitis left parotid and submandibular gland
Hypokalemia
Hypomagnesemia
Hypertension
Anemia
Dementia
Ambulatory dysfunction
Additional Diets IDDSI 4 pur�ed diet
Activity As tolerated
Driving Restrictions No driving
Blood Work BMP 2 days. CBC to check Hb in 1 week
Other Services PT,OT
Instructions:
Stand-Alone Forms:
Changes to Home Medications: Yes
Discharge Medications:
DC Medications w/original date entered in [email or web address]
hydroxyzine HCl 25 mg tablet 25 mg PO Q6HPRN PRN anxiety management 01/05/24
Saccharomyces boulardii 250 mg capsule 250 mg PO BID Supplement #0 caps 01/14/24
acetaminophen 325 mg tablet 650 mg (2 x 325 mg) PO Q4HPRN PRN pain #0 tabs 01/14/24
amoxicillin 875 mg-potassium clavulanate 125 mg tablet 1 tab PO BID Infection #3 tabs 01/14/24
atenolol 50 mg tablet 50 mg PO DAILY Blood pressure #0 tabs 01/14/24
buspirone 5 mg tablet 5 mg PO BID Mental Health/Anxiety #0 tabs 01/14/24
cholecalciferol (vitamin D3) 25 mcg (1,000 unit) capsule (Vitamin D3) 25 mcg PO DAILY Supplement #30 caps 01/14/24
donepezil 5 mg tablet 5 mg PO DAILY dementia #0 tabs 01/14/24
pantoprazole 40 mg granules delayed-release for susp in packet (Protonix) 40 mg PO DAILY Gastrointestinal issue #30 ea 01/15/24
Home Medication Changes
new
pantoprazole 40 mg granules delayed-release for susp in packet (Protonix) 40 mg PO DAILY Gastrointestinal issue #30 ea 01/15/24
amoxicillin 875 mg-potassium clavulanate 125 mg tablet 1 tab PO BID Infection #3 tabs 01/14/24
Pending Results: No
--- NOTE | 2024-01-15 14:09 | PTCARENOTE ---
Patient to return back to [facility] today. Discharge order written. Awaiting time for ambulance shredder picker to transport.
[2024-01-15 15:24] VITALS: BP 156/87
[2024-01-15] MEDS: LOVENOX 40 MG SC (17:21)
== END 2024-01-15 19:20 | DRG 155 ==
LOC: 4 EAST ACU 11:06
PROVIDERS: Internal Medicine; Registered Nurse; ADMITTING PHYSICIAN Internal Medicine; ATTENDING PHYSICIAN Hospitalist; CONSULT PHYSICIAN Otolaryngology Facial Plastic Surgery; EMERGENCY PHYSICIAN Emergency Medicine; FAMILY PHYSICIAN Family Medicine
DX: K11.20 Sialoadenitis, unspecified (principal); F03.918 Unspecified dementia, unspecified severity, with other behavioral disturbance; F03.94 Unspecified dementia, unspecified severity, with anxiety; I10 Essential (primary) hypertension; E87.6 Hypokalemia; E83.42 Hypomagnesemia; D72.829 Elevated white blood cell count, unspecified; D64.9 Anemia, unspecified; R29.6 Repeated falls; R26.89 Other abnormalities of gait and mobility; Z79.899 Other long term (current) drug therapy; Z88.1 Allergy status to other antibiotic agents
CPT/HCPCS: 70491; 80048; 80053; 82306; 82607; 82962; 83540; 83550; 83735; 84132; 85025; 85027; 92526; 92610; 96365; 96367; 96375; 97163; 97167; 97530; 99285; Q9967

== ENCOUNTER 2024-01-21 13:45 | Inpatient (IN) | payer MEDICARE, BC, SELFPAY ==
[2024-01-21] VITALS (22 sets, daily range): BP systolic 84–131; BP diastolic 36–81
[2024-01-21 11:29] LABS: % Basophils 0.5 % (0-2); % Eosinophils 0.3 % (0-6); % Immature Granulocytes 0.8 % (0-0.5); % Lymphocytes 18.2 % (20.5-51.1); % Monocytes 7.7 % (1.7-9.3); % Neutrophils 72.5 % (42.2-75.2); Absolute Immature Granulocytes 0.1 10^3/uL (0-0.05); Absolute Lymphocytes 1.2 10^3/uL (1.2-3.4); Absolute Monocytes 0.5 10^3/uL (0.1-0.6); Absolute Neutrophils 4.8 10^3/uL (1.4-6.5); Hematocrit 29.1 % (37.0-47.0); Hemoglobin 9.8 g/dL (12.0-16.0); Mean Corp Hgb Conc. 33.7 g/dL (33.0-37.0); Mean Corpuscular Hgb 29.6 pg (27.0-31.0); Mean Corpuscular Volume 87.9 fL (81.0-99.0); Mean Platelet Volume 8.8 fL (7.4-10.4); Nucleated Red Blood Cells % 0.8 %; Platelet Count 450 10^3/uL (130-400); Red Blood Cell Count 3.31 10^6/uL (4.20-5.40); Red Cell Dist. Width 13.8 % (11.5-14.5); White Blood Cell Count 6.6 10^3/uL (4.8-10.8)
[2024-01-21] MEDS: NSS 1000 IV ×2 (11:34→16:44)
[2024-01-21 11:43] LABS: ALT (SGPT) 11 U/L (0-35); AST (SGOT) 18 U/L (14-36); Albumin 2.9 g/dl (3.5-5.0); Alkaline Phosphatase 103 U/L (38-126); Blood Urea Nitrogen 9 mg/dl (7-17); Calcium 8.5 mg/dl (8.4-10.2); Carbon Dioxide 19 mmol/L (22-30); Chloride 101 mmol/L (98-107); Glucose 139 mg/dl (70-99); Potassium 3.3 mmol/L (3.5-5.1); Sodium 138 mmol/L (135-145); Total Bilirubin 0.6 mg/dl (0.2-1.3); Total Protein 5.9 g/dl (6.3-8.2); eGFR > 60.00
[2024-01-21 11:51] LABS: Urine Albumin 1+ (Neg - Trace); Urine Bilirubin Negative (Negative); Urine Character Slightly Cloudy (Clear); Urine Color Yellow; Urine Glucose Negative (Negative); Urine Ketone 3+ (Negative); Urine Leukocyte 1+ (Negative); Urine Nitrite Negative (Negative); Urine Occult Blood 3+ (Negative); Urine Urobilinogen Negative (Neg - 1+)
[2024-01-21 11:53] LABS: Lactic Acid 3.4 mmol/L (0.7-2.0)
[2024-01-21 12:20] LABS: Urine Mucus Many; Urine Squamous Cell >30 /LPF (Few)
[2024-01-21 12:30] LABS: Urine Amorphous Seen
[2024-01-21 12:32] LABS: Urine Bacteria Many (Negative)
--- NOTE | 2024-01-21 12:46 | ED.GENMED ---
History of Present Illness
General
Chief Complaint: Change in Mental Status
Time Seen by Provider: 01/21/24 11:09
History of Present Illness
History of Present Illness:
83-year-old female with history of dementia, anemia, frequent falls presenting from nursing facility for change in mental status. Per nursing facility, patient had been unresponsive. Patient is alert and responsive on arrival, however very
difficult historian, secondary to dementia. Per nursing facility, noted to be hypotensive prior to arrival, no additional history obtained at this time
Past History
Past History
ED Past Medical History: HTN and Psychiatric (Dementia)
ED Past Surgical History: Cholecystectomy and Gynecological (-)
Social History
Personal:
Living: with family
Employment: Employed (works at [employer]. Has been there for years, nothing different done at work.)
Phy Exam
Physical Exam
Physical Exam:
General: Well-appearing, no clinical signs of dehydration, nontoxic and in no acute distress
HEENT: protecting airway
Neck: appears supple
CV: Normal heart rate, regular rhythm
Resp: No accessory muscle use, no increased work of breathing, lungs clear to auscultation bilaterally
Abd: Soft and non-distended, no tenderness to palpation
Extremities: No deformities, no swelling, no erythema
Neuro: alert, disoriented
: deferred
Rectal: deferred
Psych: Normal affect
Skin: Intact
Sepsis
Sepsis Screening
Sepsis Assessment: Sepsis
Sepsis Screening: Lactate >2mmol/L and Hypotension
Sepsis Screen
Sepsis Screen: Sepsis
Date: 01/21/24
Time: 12:47
Course
Orders/Labs/Results
Orders:
Orders
01/21/24 11:07
Electrocardiogram (*1) Urgent
Reason for Study: Other
Other Reason for Exam: hypotension, AMS
EKG- Treatment ONCE
01/21/24 11:15
0.9% Sodium Chloride 1000 ml [Nss] 1,000 ml IV BOLUS
CR Chest - 2 Views Urgent
Comment:
Reason For Exam: low BP, AMS
01/21/24 11:19
Complete Blood Count/With Diff Urgent
Comprehensive Metabolic Panel Urgent
Lactic Acid Q4H
Comment: CANCEL 2nd LACTIC ACID IF 1st LACTIC ACID IS LESS THAN 2
Urinalysis Reflex To Culture Urgent
Date Specimen was Collected: 01/21/24
Time Specimen was Collected: 11:06
Urine Microscopic Reflex Cult Urgent
Urine Culture Urgent
DONAL Source: U
Specimen Description:
Date Specimen was Collected: 01/21/24
Time Specimen was Collected: 11:06
01/21/24 12:17
COVID-19 Antigen Urgent
Source: Nasal Swab
01/21/24 12:30
Blood Culture Q30M
DONAL Source: Blood/Venous
Specimen Description:
01/21/24 12:45
Cefepime HCl [Maxipime] 2,000 mg IV NOW STA
01/21/24 13:00
Blood Culture Q30M
DONAL Source: Blood/Venous
Specimen Description:
01/21/24 15:30
Lactic Acid Q4H
Comment: CANCEL 2nd LACTIC ACID IF 1st LACTIC ACID IS LESS THAN 2
Abnormal Lab Results
01/21/24
11:19
RBC 3.31 L 10^6/uL
(4.20-5.40)
Hgb 9.8 L g/dL
(12.0-16.0)
Hct 29.1 L %
(37.0-47.0)
Plt Count 450 H 10^3/uL
(130-400)
Abs Immat Gran (auto) 0.1 H 10^3/uL
(0-0.05)
Immature Gran % 0.8 H %
(0-0.5)
Lymphocytes % 18.2 L %
(20.5-51.1)
Potassium 3.3 L mmol/L
(3.5-5.1)
Carbon Dioxide 19 L mmol/L
(22-30)
Glucose 139 H mg/dl
(70-99)
Lactic Acid 3.4 H mmol/L
(0.7-2.0)
Total Protein 5.9 L g/dl
(6.3-8.2)
Albumin 2.9 L g/dl
(3.5-5.0)
Urine Ketones 3+ A
(Negative)
Ur Occult Blood Reflex 3+ A
(Negative)
Leukocyte Esterase Rfl 1+ A
(Negative)
Urine RBC 7-10 A /HPF
(0-2)
Urine WBC (Reflex) 11-15 A /HPF
(0-5)
Urine Bacteria (Reflex) Many A
(Negative)
Urine Albumin (Reflex) 1+ A
(Neg - Trace)
01/21/24 11:19
01/21/24 11:19
Vital Signs
Initial and Last Documented VS:
Initial Vital Signs
Pulse Resp
80 13
01/21/24 11:05 01/21/24 11:05
Last Documented Vital Signs
Temp Pulse Resp BP Pulse Ox
98.7 F 72 20 105/50 90
01/21/24 11:08 01/21/24 12:19 01/21/24 12:19 01/21/24 12:18 01/21/24 11:08
MDM/Problems Addressed
MDM/Problems Addressed:
83-year-old female with history of dementia presenting for concern of unresponsive state. Vital signs on arrival significant for low blood pressure.
On exam, patient is responsive, however very limited historian given dementia. Benign cardiac and pulmonary exam. No significant tenderness to abdomen. Given presenting hypotension, concern for dehydration, possible infectious pathology. Will
obtain laboratory analysis including lactic acid. Will also straight catheter urine. Will obtain chest x-ray imaging and COVID, to assess for source of preceding unresponsive state..
12:30 - Patient's lactic acid is 3.4, so blood cultures ordered. Urine does show signs of infection, straight cath. Suspected source of presenting symptoms. Will start on cefepime. Blood pressure is improving with IV fluids. Plan for admission
*Critical Care Note
Total Time (30-74mins, 75-104mins- exclusive of procedures): Not Applicable
ED Attending Note
-
Portions of this chart may have been created with voice recognition software.� Occasional wrong word or��sound alike� substitutions may have occurred due to the inherent limitations of voice recognition software.
Discharge Plan
Departure
Prescriptions:
No Action
hydroxyzine HCl 25 mg tablet
25 mg PO Q6HPRN PRN (Reason: anxiety management)
Saccharomyces boulardii 250 mg Capsule
250 mg PO BID Qty: 0 0RF
buspirone 5 mg tablet
5 mg PO BID Qty: 0 0RF
donepezil 5 mg Tablet
5 mg PO DAILY Qty: 0 0RF
atenolol 50 MG tablet
50 mg PO DAILY Qty: 0 0RF
cholecalciferol (vitamin D3) [Vitamin D3] 25 mcg (1,000 unit) capsule
25 mcg PO DAILY Qty: 30 0RF
magnesium hydroxide [Milk of Magnesia] 400 mg/5 mL Suspension
2,400 mg PO DAILYPRN PRN (Reason: constipation)
omeprazole 20 mg Tablet,Delayed Release (Dr/Ec)
20 mg PO DAILY
Cavilon Durable Barrier 1.3 % Cream
1 applic TOPICAL TID
acetaminophen 325 mg tablet
650 mg PO Q4HPRN PRN (Reason: mild pain)
Referrals:
Tereso Weinstein MD [Family Provider] -
Interventions
Interventions:
*Risk Screen - Suicide Last Done: 01/21/24 11:35
*General Assessment Last Done: 01/21/24 11:35
*Neglect/Abuse Screening Last Done: 01/21/24 11:35
ED- Fall Risk Assessment Last Done: 01/21/24 11:35
*ED COVID-19 Vaccine History Last Done: 01/21/24 11:35
ED- Pulmonary Assessment Last Done: 01/21/24 11:35
ED- Neurological Assessment Last Done: 01/21/24 11:35
ED- Cardiac Assessment Last Done: 01/21/24 11:35
Discharge Date and Time
Print Language: TURKISH
[2024-01-21] MEDS: MAXIPIME 2000 MG IV (12:49)
[2024-01-21 13:19] LABS: COVID-19 Antigen Negative (Negative)
--- NOTE | 2024-01-21 13:23 | HPS.HSE ---
Addendum entered and electronically signed by Paxton Edwards MD 01/21/24 13:58:
I saw and examined the patient.
The SOFTWARE PROGRAM MANAGER or PA's note was reviewed and I agree with the note.
Comment:
I could not get any information from the patient as
Information gathered by chart review and speaking with the ER staff.
This note serves as an addendum to the H&P by gutter hanger JUAN JOSE Radha ALMAGUER
HPI
83F [facility] Res HX HANNAH ( Dementia Alzheimer type) seen at ER who is coming in with unresponsive sate.
- She becomes responsive here but unable to provide history due to dementia.
- Initially hypotensive, improving with IV fluids.
- Unremarkable Exam
PE
Gen: awake , inter active, follow simple commands , she knows what she wamts
HEENT: very dry OM
Neck: supple
Lungs: limited exam due to body posture
Cor: RRR S1 s2
Abdomen: soft benign
BROOM STITCHER: AA, non focal weakness
MS: no edema , dry skin
Psych: limied exam due to dementia
lab
significant for Lactate 3.4
Metabolic acidosis
Straight cath UA is questionable for UTI with many Sq cells
BCxs , UCx sent
CXR clear.
ASSESSMENT & PLAN
AMS : Diff etiology - ADES of SURFACE LAY OUT TECHNICIAN Meds , dehydration , eval for sepsis
Significant hypotension - suspect dehydration due to poor POs
Significant LA, metabolic acidosis - suspect due to hypotension and volume contraction
Questionable UTI per straight cath UA
No evidence of SIRS at ER
NEG CXR
- UCx and BCx were sent
- s/p first dose of IV CFP at ER
- more responsive and interactive at ER on IVF
- check PCT to eval sepsis till then hold
- Hold atenolol
- Hold Hydroxyzine
- De escalade Buspirone
DVT Px: SCD
Full code
IP TLM
Original Note:
Family Physician
-
Family Physician: Tereso Weinstein
Chief Complaint
-
Unresponsive Episode
History of Present Illness
Patient is an 83 y/o female past medical history of hypertension and dementia who presents following an unresponsive episode. Patient is unable to to provide any additional history. Spoke with staff over at [facility] where patient reside. They
note patient was found slumped over in her bed, and appeared to have vomited. Staff notes that the patient was fine about 20 minutes prior. Patient was noted to be hypotensive. EMS was called and was slightly more alert upon arrival. During my
evaluation patient is awake, answering questions and following some commands.
Medical History
Past Medical History
Past Medical History: Reports Other
Additional Past Medical History:
Dementia with Behavioral Disturbance
Dysphagia
Essential Hypertension
Past Surgical History: Reports Other
Additional Past Surgical History:
Cholecystectomy
Social History
Unable to obtain full social history at this time due to: Dementia
Living: Care Home
Family History
Family History: Unable to Obtain
Allergies / Home Medications
Allergies reflects when Allergies were last updated in [facility].
Home Medications with original date entered in [facility]
Allergy/Medication List:
Allergies
Allergy/AdvReac Type Severity Reaction Status Date / Time
erythromycin base Allergy WIERD Verified 01/13/24 16:05
[Erythromycin Base] FEELING
Home Medications
hydroxyzine HCl 25 mg tablet 25 mg PO Q6HPRN PRN anxiety management 01/05/24
Saccharomyces boulardii 250 mg capsule 250 mg PO BID Supplement #0 caps 01/14/24
atenolol 50 mg tablet 50 mg PO DAILY Blood pressure #0 tabs 01/14/24
buspirone 5 mg tablet 5 mg PO BID Mental Health/Anxiety #0 tabs 01/14/24
cholecalciferol (vitamin D3) 25 mcg (1,000 unit) capsule (Vitamin D3) 25 mcg PO DAILY Supplement #30 caps 01/14/24
donepezil 5 mg tablet 5 mg PO DAILY dementia #0 tabs 01/14/24
acetaminophen 325 mg tablet 650 mg PO Q4HPRN PRN mild pain 01/21/24
dimethicone 1.3 % topical cream (Cavilon Durable Barrier) 1 applic topical TID incontinence 01/21/24
magnesium hydroxide 400 mg/5 mL oral suspension (Milk of Magnesia) 2,400 mg PO DAILYPRN PRN constipation 01/21/24
omeprazole 20 mg tablet,delayed release 20 mg PO DAILY 01/21/24
Review of Systems
-
Unable to obtain full review of systems at this time due to: Dementia
Physical Exam
Vital Signs
Vital Signs
Temp Pulse Resp BP Pulse Ox
98.7 F 73 15 111/61 90
01/21/24 11:08 01/21/24 13:00 01/21/24 13:00 01/21/24 12:45 01/21/24 11:08
Physical Exam
General: Comfortable and Conversant
HEENT: Anicteric and Other (Mucous Membranes are Dry)
Respiratory: Clear (Anteriorly) and Non Labored Respirations
Cardiac: S1/S2 and Regular Rhythm
GI: Soft and Non Tender
Genito-urinary: Other (Patient straight cathed for a very small amount of urine (Noted to be difficult to obtain by nursing staff))
Musculoskeletal: No Clubbing, No Cyanosis and No Edema
Skin: Warm and Dry
Neuro: Awake, Alert, Oriented (Self only) and Nonfocal/grossly intact
Psych: Calm
Laboratory Results
-
01/21/24 11:19
01/21/24 11:19
Laboratory Results
Lactic Acid 3.4 mmol/L (0.7-2.0) H 01/21/24 11:19
Total Bilirubin 0.6 mg/dl (0.2-1.3) 01/21/24 11:19
AST 18 U/L (14-36) 01/21/24 11:19
ALT 11 U/L (0-35) 01/21/24 11:19
Alkaline Phosphatase 103 U/L (38-126) 01/21/24 11:19
Data Reviewed
-
Lab Data: Labs Reviewed by me
Old Records: Reviewed
Impression/Plan
-
Hypotension / Lactic Acidosis, possible sepsis secondary to urinary tract infection (though urinalysis appears contaminated with >30 squamous epithelial cells despite straight cath
-Patient given Cefepime in ED - Transition to Ceftriaxone
-Check Procalcitonin - If negative plan to stop antibiotics
-Await urine and blood cultures
Hypokalemia
-Replace potassium
-Check magnesium
Normocytic Anemia
-Continue to trend Hgb
Dementia with Behavioral Disturbance
-Decrease BuSpar 2.5mg BID - Hold for sedation
-Continue Aricept
Dysphagia
-Continue IDDS 4 (Pureed) with thin liquids
-Consult Speech
Essential Hypertension
-Hold Atenolol
DVT proph: SCDs
Code Status: Full Code
[2024-01-21] MEDS: KLOR-CON 40 MEQ PO (14:10)
[2024-01-21 14:37] LABS: Magnesium 1.6 mg/dl (1.6-2.3)
[2024-01-21 16:04] LABS: Lactic Acid 3.1 mmol/L (0.7-2.0)
[2024-01-21] MEDS: NSS with KCL 40 MEQ 1000 IV (18:11)
[2024-01-21] MEDS: STERILE WATER FOR INJECTION 10 ML IV (18:33)
[2024-01-21] MEDS: ROCEPHIN 1000 MG IV (18:33)
--- NOTE | 2024-01-21 19:23 | W.PN.UPDATE ---
Update Note
Progress Note Update
I saw and examined the patient.
The SILK SCREEN PROCESSOR or PA's note was reviewed and I agree with the note.
Comment:
I could not get any information from the patient as
Information gathered by chart review and speaking with the ER staff.
This note serves as an addendum to the H&P by bill recapitulation clerk JUAN JOSE Radha ALMAGUER
HPI
83F [facility] Res HX HANNHA ( Dementia Alzheimer type) seen at ER who is coming in with unresponsive sate.
- She becomes responsive here but unable to provide history due to dementia.
- Initially hypotensive, improving with IV fluids.
- Unremarkable Exam
PE
Gen: awake , inter active, follow simple commands , she knows what she wamts
HEENT: very dry OM
Neck: supple
Lungs: limited exam due to body posture
Cor: RRR S1 s2
Abdomen: soft benign
WELLNESS PROGRAM MANAGER: AA, non focal weakness
MS: no edema , dry skin
Psych: limited exam due to dementia
lab
significant for Lactate 3.4
Metabolic acidosis
Straight cath UA is questionable for UTI with many Sq cells
BCxs , UCx sent
CXR clear.
ASSESSMENT & PLAN
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
Significant hypotension - suspect dehydration due to poor POs
Significant LA, metabolic acidosis - suspect due to hypotension and volume contraction
Questionable UTI per straight cath UA
No evidence of SIRS at ER
NEG CXR
- UCx and BCx were sent
- s/p first dose of IV CFP at ER
- more responsive and interactive at ER on IVF
- check PCT to eval sepsis till then hold
- Hold atenolol
- Hold Hydroxyzine
- De escalade Buspirone
DVT Px: SCD
Full code
IP TLM
--- NOTE | 2024-01-21 19:31 | PTCARENOTE ---
Patient admitted from the ER into room 406-01. Vital signs stable. Patient with history of dementia - oriented to self only without ability to reorient. Patient pulling at IV line and tele monitor. Med sitter obtained. Will move patient closer to
nurses's station when bed available. MRSA screen sent. Patient with excoriation on buttocks/saccral area. Calazime cream applied.
--- NOTE | 2024-01-21 19:43 | PTCARENOTE ---
Patient with an episode of vomiting upon arrival to floor. [place] colored. Patient very lethargic. Speech consult placed. Patient made NPO. IVF maintained.
[2024-01-21] MEDS: BUSPAR PO (19:58)
[2024-01-21] MEDS: FLORASTOR PO (19:58)
[2024-01-21 20:23] LABS: Procalcitonin 0.26 ng/ml (0.0-0.25)
[2024-01-21 20:46] LABS: Lactic Acid 2.7 mmol/L (0.7-2.0)
[2024-01-22 03:24] VITALS: BP 114/52
[2024-01-22 05:52] VITALS: BMI 23.5
[2024-01-22 08:01] VITALS: BP 129/64
[2024-01-22] MEDS: ARICEPT PO (08:14)
[2024-01-22] MEDS: BUSPAR PO ×2 (08:14→21:17)
[2024-01-22] MEDS: VITAMIN D3 (cholecalciferol) PO (08:14)
[2024-01-22] MEDS: FLORASTOR PO ×2 (08:14→21:17)
--- NOTE | 2024-01-22 08:16 | PTCARENOTE ---
Patient refusing all oral medications. Spitting out medications in apple sauce. Pending speech evaluation. Baseline confusion/lethargy. Hospitalist made aware that patient has not received any oral medications.
[2024-01-22 08:19] LABS: Hematocrit 20.8 % (37.0-47.0); Hemoglobin 7.2 g/dL (12.0-16.0); Mean Corp Hgb Conc. 34.6 g/dL (33.0-37.0); Mean Corpuscular Volume 89.7 fL (81.0-99.0); Mean Platelet Volume 8.7 fL (7.4-10.4); Platelet Count 245 10^3/uL (130-400); Red Blood Cell Count 2.32 10^6/uL (4.20-5.40); Red Cell Dist. Width 14.1 % (11.5-14.5); White Blood Cell Count 10.3 10^3/uL (4.8-10.8)
--- NOTE | 2024-01-22 08:31 | PTOTSP ---
ST Acute Care Evaluation Attempt
Chart reviewed. Pt recently admitted earlier this month and was started on pureed solids and thin liquids. Pt reportedly with poor PO intake at that time and with coughing with PO intake.
Pt seen today at bedside. Brief oral care provided. Pt oriented to self only; minimal verbal output. Pt refused all PO trials - spitting them out. Cannot provide any insight as to what pt would be able to safely tolerate in terms of PO intake and/or
PO meds at this time given refusal. Would recommend keeping pt strict NPO at this time. EXTRACTIVE METALLURGIST to f/u to complete full evaluation as able.
--- NOTE | 2024-01-22 08:45 | PTCARENOTE ---
Hgb 7.2 this am down from 9.8 yesterday. Patient did receive aggressive hydration yesterday in ER. Hospitalist made aware.
[2024-01-22 08:51] LABS: Blood Urea Nitrogen 14 mg/dl (7-17); Calcium 7.9 mg/dl (8.4-10.2); Carbon Dioxide 17 mmol/L (22-30); Chloride 108 mmol/L (98-107); Estimated Creatinine Clearance 57 ml/min; Glucose 102 mg/dl (70-99); Magnesium 1.6 mg/dl (1.6-2.3); Potassium 3.9 mmol/L (3.5-5.1); Sodium 141 mmol/L (135-145); eGFR > 60.00
[2024-01-22 11:54] VITALS: BP 133/65
--- NOTE | 2024-01-22 12:27 | CM ---
Pt is from [facility] LTC, admitted from their SNF.
CM spoke w/ pt son and DIL as pt has dementia. Per Ruma CORRALES, she confirmed pt is a LTC resident at [facility]. Ruma informed that pt spouse is currently at [facility] SNF as well and as requested from spouse, to not inform pt of this due to
her dementia and combativeness.
Ruma stated pt spouse should not be contacted re pt as he is not doing good and to contact son and her.
Ruma cont. to state that pt has been combative w/ SNF and refuse to participate. Pt's dementia has advanced in the last 2-3 years per ANTONI. Pt son and DIL currently has taken the responsibility of taking care of pt's daughter (60) who has special
needs.
Per Ruma, she would like a call from the hospitalist as she and son has concerns. CM TT hospitalist
CM spoke w/ nurse/Paramduke Luus, pt is total care and oriented 1. Nurse was not familiar w/ pt to give additional PLOF
CM spoke w/ Trisha/[facility]. Trisha will follow up w/ CM for PLOF.
ST eval attempted. RN NIGHT to follow up to complete full eval per ST note
Secondary Contact if son cannot be reached
Ruma Enriquez/[id number]

Plan: Return to [facility] at d/c
CM will cont. to follow for d/c planning
[2024-01-22] MEDS: D5/0.45%NACL 1000 IV (13:03)
--- NOTE | 2024-01-22 13:30 | PTOTSP ---
ST Acute Care Evaluation
Pt is currently present with an acute change in mental status (compounded by baseline dementia) that is precluding her from accepting PO intake at this time. Pt demonstrates adequate airway protection with saliva at this time as evidenced by minimal
secretions and a reflexive swallow initiation. Pt also noted to present with oral discomfort with oral care - possibly related to recent sialadenitis?
Recommendations:
- STRICT NPO; NO ARHP at this time.
- Aspiration precautions: HOB upright as often as possible; oral care QID if pt will tolerate.
- SKYDIVING INSTRUCTOR to re-assess to determine if pt is a candidate for PO intake and to determine if an instrumental swallow study is needed.
--- NOTE | 2024-01-22 13:56 | W.PN.HOSP.TC ---
Today's Communication/Plan
-
see plan above
Assessment / Plan
Assessment / Plan
Hypotension / Lactic Acidosis, possible sepsis secondary to urinary tract infection (though urinalysis appears contaminated with >30 squamous epithelial cells despite straight cath
Patient now with resolved lactic acidosis and hemodynamics are stable.
Abdomen is benign.EKG no acute ST/T changes. No events on monitor.
Elevated procalcitonin noted.
-cw Ceftriaxone
-Await urine and blood cultures
Hypokalemia
-Replace potassium
-Check magnesium
Normocytic Anemia
-Acute drop in H&H without external bleeding noted. Suspect probably dilutional.
-Continue to trend Hgb
Dementia with hx of Behavioral Disturbance
-Decrease BuSpar 2.5mg BID - Hold for sedation
-Continue Aricept
Dysphagia
-on IDDS 4 (Pureed) with thin liquids
-Consult Speech
- cw IV fluids
Essential Hypertension
-Hold Atenolol
DVT proph: SCDs
Code Status: Full Code
Anticipated Discharge: > 48 hours
Subjective/Interval History
-
Date of Service: January 22, 2024
Patient is alert and oriented to self. 'I know i am is in the hospital , what is it's name?'
She could not tell me why she came to the hospital. She did not she was here recently for infected salivary glands.
She is also voicing no specific complaints. Denies any pain anywhere.
Denies any dizziness or lightheadedness.
She has hx of dementia.
Objective Data
-
Labs:
Laboratory Results
01/22/24
07:38
WBC 10.3
Hgb 7.2 L D
Hct 20.8 L*
Plt Count 245 D
Sodium 141
Potassium 3.9
Chloride 108 H
Carbon Dioxide 17 L
BUN 14
Creatinine 0.7
Glucose 102 H
Calcium 7.9 L
Vital Signs:
Vital Signs
Temp Pulse Resp BP Pulse Ox
97.9 F 76 18 133/65 95
01/22/24 11:54 01/22/24 11:54 01/22/24 11:54 01/22/24 11:54 01/22/24 11:54
I&O
01/21/24 01/22/24 01/23/24
06:59 06:59 06:59
Intake Total 720 / 720
Balance 720 / 720
Review of Systems
-
Unable to obtain full review of systems at this time due to: Dementia
Respiratory: Denies Trouble Breathing
Cardiac: Denies Chest Pain
Abdomen/GI: Denies Abdominal Pain, Nausea or Vomiting
Neuro: Denies Dizzy
Physical Exam
-
General: Comfortable
HEENT: Other (non tender left parotid or submandibular gland); Negative Moist Mucous Membranes (dry)
Respiratory: Clear to Auscultation (anteriorly) and Non Labored Respirations; Negative Accessory Resp Muscle Use
Cardiac: Regular Rhythm and S1/S2; Negative Tachycardic
GI: Soft and Nontender
Neuro: Awake, Alert and Oriented (self and person; she is pleasantly confused; she is thankful for the visit and care.); Negative No Motor Deficits (Difficult exam but moves all 4 limbs. No spontaneous nystagmus.)
Psych: Calm
Data Reviewed
-
Labs: Labs Reviewed by me
[2024-01-22 14:54] VITALS: BMI 23.5
[2024-01-22 15:26] VITALS: BP 142/71
[2024-01-22] MEDS: STERILE WATER FOR INJECTION 10 ML IV (17:21)
[2024-01-22] MEDS: ROCEPHIN 1000 MG IV (17:21)
[2024-01-22 19:00] VITALS: BP 136/64
[2024-01-22 23:00] VITALS: BP 139/65
[2024-01-23] VITALS (13 sets, daily range): BP systolic 120–155; BP diastolic 56–82; BMI 24.0
[2024-01-23] MEDS: D5/0.45%NACL 1000 IV (01:44)
[2024-01-23 07:52] LABS: Hematocrit 19.7 % (37.0-47.0); Hemoglobin 6.7 g/dL (12.0-16.0); Mean Corpuscular Hgb 29.3 pg (27.0-31.0); Mean Platelet Volume 8.6 fL (7.4-10.4); Platelet Count 222 10^3/uL (130-400); Red Blood Cell Count 2.29 10^6/uL (4.20-5.40); Red Cell Dist. Width 14.4 % (11.5-14.5); White Blood Cell Count 7.8 10^3/uL (4.8-10.8)
[2024-01-23 08:17] LABS: Blood Urea Nitrogen 13 mg/dl (7-17); Calcium 7.7 mg/dl (8.4-10.2); Carbon Dioxide 21 mmol/L (22-30); Chloride 109 mmol/L (98-107); Estimated Creatinine Clearance 67 ml/min; Glucose 122 mg/dl (70-99); Potassium 3.1 mmol/L (3.5-5.1); Sodium 139 mmol/L (135-145); eGFR > 60.00
[2024-01-23] MEDS: FLORASTOR PO ×2 (08:19→20:19)
[2024-01-23] MEDS: ARICEPT PO (08:19)
[2024-01-23] MEDS: BUSPAR PO ×2 (08:19→20:17)
[2024-01-23] MEDS: VITAMIN D3 (cholecalciferol) PO (08:20)
--- NOTE | 2024-01-23 08:42 | PN.CDI ---
CDI
- -
CDI:
Physician Documentation Request
Admit Date: 01/21/24 13:45
Dear Doctor Wilber,
Clinical Indicators:
Patient admitted with hypotension, possible sepsis.
RN skin/wound assessment: Sacrum Stage 2 Pressure Injury, POA
Buttock Stage 2 Pressure Injury, POA
Treatment: Silicone border foam dressing
Physician documentation of the type and location of wounds is required for compliant documentation. Based on the above clinical findings and your assessment, please provide the following in your progress note:
1. Location of the ulcer/wound, including laterality.
2. Type (etiology) of ulcer/wound:
- Pressure (decubitus) ulcer
- Other, please specify
3. If a pressure ulcer, please also include the stage* of the ulcer:
- Stage 1 - Skin intact, non-blanchable redness
- Stage 2 - Partial thickness loss of dermis, includes intact or open blister
- Stage 3 - Full thickness tissue not including bone, tendon or muscle
- Stage 4 - Full thickness tissue loss, including exposed bone, tendon or muscle
- Unstageable - Full thickness loss in which the base of the ulcer is covered by slough (yellow, gomes, milton, green or brown) and/or eschar (gomes, brown or black) in the wound bed.
- Unable to determine
Use of terms such as suspected, likely, concern for, or probable (associated with a specific diagnosis that is being evaluated, monitored, or treated as if it exists) are acceptable and can be coded in the inpatient setting, when documented at the
time of discharge.
Thank you,
Jyotsna Ceballos RN BSN
CDI Specialist
available via tiger text
Please use your independent medical judgment in providing your response.
*Source: National Pressure Ulcer Advisory Panel (NPUAP)
--- NOTE | 2024-01-23 11:07 | W.PN.HOSP.TC ---
Today's Communication/Plan
-
Continue with antibiotics.
Obtain a CT of the neck.
Start on artificial saliva and oral care.
Continue with speech eval.
Transfused 2 units of PRBC.
Assessment / Plan
Assessment / Plan
Hypotension / Lactic Acidosis, possible sepsis
Patient now with resolved lactic acidosis and hemodynamics are stable.
Abdomen is benign.EKG no acute ST/T changes. No events on monitor.
Elevated procalcitonin noted.
Blood and urine culture are neg.
In view of recent significant sialadenitis and poor hx due to dementia would do a CT neck to rule out any head and neck infection
-cw Ceftriaxone for now
Severe dry oral mucosa - unclear reason. No hx of Sjogrens. Will try oral care , artificial saliva and hydratoin and follow.
Hypokalemia
-Replace potassium IV
Normocytic Anemia
-Acute drop in H&H without external bleeding noted. Suspect probably dilutional.
-But with severe anemia will transfuse one unit of PRBC
- CW heme testing of stools
- Check Iron stores
Dementia with hx of Behavioral Disturbance
-Decrease BuSpar 2.5mg BID - Hold for sedation
-Continue Aricept
Dysphagia
-on IDDS 4 (Pureed) with thin liquids
-Consult Speech
- cw IV fluids
Essential Hypertension
-Hold Atenolol
DVT proph: SCDs
Code Status: Full Code.
There has been a general decline with a dementia and functional capacity according to the son. I did discuss about resuscitation wishes again today-he wants to leave that to his father. For now full code.
Discussed with son Johnnie who is listed as contact. He has another brother but he makes most decisions apparently. We discussed our her admitting issues, diagnosis and treatment plan.
Also went over regarding the severe anemia and the need of transfusion. Discussed about benefit and the risk. He is agreeable for 2 units of transfusion. Got a telephone consent from him in regards to that.
Total time spent on today's encounter was 52 minutes which included time spent in counseling the patient/family regarding diagnosis and treatment plan as listed above, goals of care, and symptom management. Case was discussed with nursing staff All
labs and imaging personally reviewed by me. Remainder the time spent in detailed review of previous records, lab data, imaging, and other medical provider documentation.
Anticipated Discharge: > 48 hours
Subjective/Interval History
-
Date of Service: January 23, 2024
Patient is alert and oriented to place partly. She knows she is in the hospital but cannot name it.
Voicing no specific complaints. Denies any pain anywhere in her body. Denies any pain in her mouth.
No pain in the neck.
Objective Data
-
Labs:
Laboratory Results
01/23/24
07:20
WBC 7.8
Hgb 6.7 L*
Hct 19.7 L*
Plt Count 222
Sodium 139
Potassium 3.1 L
Chloride 109 H
Carbon Dioxide 21 L
BUN 13
Creatinine 0.5 L
Glucose 122 H
Calcium 7.7 L
Vital Signs:
Vital Signs
Temp Pulse Resp BP Pulse Ox
97.3 F 83 18 137/66 98
01/23/24 08:14 01/23/24 08:14 01/23/24 08:14 01/23/24 08:14 01/23/24 10:24
I&O
01/22/24 01/23/24 01/24/24
06:59 06:59 06:59
Intake Total 720 / 720
Balance 720 / 720
Review of Systems
-
Unable to obtain full review of systems at this time due to: Other (cognitive impairment)
Respiratory: Denies Trouble Breathing
Cardiac: Denies Chest Pain
Abdomen/GI: Denies Abdominal Pain, Nausea or Vomiting
Neuro: Denies Dizzy
Physical Exam
-
General: No Apparent Distress
HEENT: Negative Moist Mucous Membranes (extremely dry mouth ;hardly any saliva . No obvious masses noted. Left SM/Parotid glands are painless and no major swelling noted .)
Respiratory: Clear to Auscultation (anteriorly)
Cardiac: Regular Rhythm and S1/S2
GI: Soft and Nontender
Neuro: Awake, Alert and Oriented (self); Negative No Motor Deficits (Was all 4 limbs.)
Psych: Calm and Confused; Negative Agitated
Data Reviewed
-
Labs: Labs Reviewed by me
[2024-01-23 11:47] LABS: Iron 67 ug/dl (37-170)
[2024-01-23] MEDS: KCL 270 MEQ IV (11:47)
[2024-01-23 11:57] LABS: Percent Saturation 66 % (20-50); Total Iron Binding Capacity 101 ug/dl (265-497)
--- NOTE | 2024-01-23 12:32 | PTCARENOTE ---
Patient's HGB this morning 6.7. Hospitalist notified. Patient remains lethargic but easily arousable to verbal and tactile stimuli. Remains confused - oriented to self only/knows which is patient's baseline. Hospitalist obtained verbal blood
consent from son. Awaiting blood consent to place in chart. Patient had type and cross but awaiting second blood bank specimen. Contacted MD to address code status. As per MD family needs to discuss with other family members so she remains a full
code at this time. Patient unable to swallow without evidence of aspiration. Speech saw patient at bedside and agrees to continue with strict NPO status. Patient with coughing after small amount of water. Patient spits out applesauce. Patient states
'I don't want it'. CT of neck ordered and will be completed after blood transfusion. Hospitalist feels as though patient can remain on telemetry unit and does not need higher level of care at this time.
[2024-01-23] MEDS: OASIS PO ×2 (12:47→23:01)
[2024-01-23] MEDS: D5/0.45%NACL IV (14:40)
--- NOTE | 2024-01-23 14:41 | PTCARENOTE ---
Addendum entered by Kenia Dickey RN 01/23/24 17:50:
First unit of PRBCs transfused without issues. Second unit started. No signs/symptoms of transfusion reaction.
Original Note:
Consent for blood transfusion placed in chart. Patient's vital signs stable. First unit of PRBCs started via right AC line. IV team unable to obtain additional line. Tolerating transfusion well without signs/symptoms of reaction.
--- NOTE | 2024-01-23 16:04 | CM ---
Addendum entered by Noris Lopez 01/23/24 17:27:
ambulance transfer forms on chart.
Original Note:
Patient for blood transfusions today.
Continues NPO.
Plan: return to [facility] once medically stable.
[facility]
Report# [phone]
--- NOTE | 2024-01-23 16:05 | CM ---
Chart reviewed. Pt from [facility]
Cont. abx
ST to evaluate
Plan: Return to LTC facility when medically stable
[2024-01-23] MEDS: LASIX 20 MG IV (20:12)
[2024-01-23] MEDS: ROCEPHIN 1000 MG IV (20:14)
[2024-01-23] MEDS: STERILE WATER FOR INJECTION 10 ML IV (20:14)
[2024-01-23] MEDS: OASIS 1 SPRAY PO (20:20)
[2024-01-24 03:00] VITALS: BP 128/71
[2024-01-24 06:00] VITALS: BMI 23.4
[2024-01-24 06:13] LABS: Blood Urea Nitrogen 13 mg/dl (7-17); Carbon Dioxide 24 mmol/L (22-30); Chloride 106 mmol/L (98-107); Estimated Creatinine Clearance 67 ml/min; Glucose 88 mg/dl (70-99); Potassium 3.3 mmol/L (3.5-5.1); Sodium 141 mmol/L (135-145); eGFR > 60.00
[2024-01-24 06:25] LABS: Hematocrit 29.8 % (37.0-47.0); Hemoglobin 10.5 g/dL (12.0-16.0); Mean Corp Hgb Conc. 35.2 g/dL (33.0-37.0); Mean Corpuscular Hgb 29.4 pg (27.0-31.0); Mean Corpuscular Volume 83.5 fL (81.0-99.0); Mean Platelet Volume 8.5 fL (7.4-10.4); Platelet Count 241 10^3/uL (130-400); Red Blood Cell Count 3.57 10^6/uL (4.20-5.40); White Blood Cell Count 6.6 10^3/uL (4.8-10.8)
[2024-01-24 07:00] VITALS: BP 145/70
[2024-01-24] MEDS: OASIS 1 SPRAY PO ×4 (08:26→20:00)
[2024-01-24] MEDS: BUSPAR 2.5 MG PO ×2 (10:23→20:00)
[2024-01-24] MEDS: VITAMIN D3 (cholecalciferol) 25 MCG PO (10:23)
[2024-01-24] MEDS: ARICEPT 5 MG PO (10:24)
[2024-01-24] MEDS: FLORASTOR 250 MG PO ×2 (10:25→20:00)
[2024-01-24 11:00] VITALS: BP 129/71
--- NOTE | 2024-01-24 13:57 | W.PN.HOSP.TC ---
Today's Communication/Plan
-
Replete K
CW IV fluids
CW speech tx
CT A/P pending
Assessment / Plan
Assessment / Plan
Hypotension / Lactic Acidosis, possible sepsis
Patient now with resolved lactic acidosis and hemodynamics are stable.
Abdomen is benign.EKG no acute ST/T changes. No events on monitor.
Elevated procalcitonin noted.
Blood and urine culture are neg.
In view of recent significant sialadenitis and poor hx due to dementia would do a CT neck to rule out any head and neck infection -Pending
-cw Ceftriaxone for now
Severe dry oral mucosa - unclear reason. No hx of Sjogrens. cw oral care , artificial saliva and hydration and follow.
Hypokalemia
-Replace potassium IV
Normocytic Anemia
-Acute drop in H&H without external bleeding noted. Suspect probably dilutional.
-But with severe anemia transfused two units of PRBC with appropriate response
- CW heme testing of stools
- Iron stores suggest ACD
Dementia with hx of Behavioral Disturbance
-Decrease BuSpar 2.5mg BID - Hold for sedation
-Continue Aricept
Dysphagia
-was on IDDS 4 (Pureed) with thin liquids
-Consulted Speech -NPO
- cw IV fluids
Essential Hypertension
-Hold Atenolol
DVT proph: SCDs
Code Status: Full Code.
01/22 There has been a general decline with a dementia and functional capacity according to the son. I did discuss about resuscitation wishes again today-he wants to leave that to his father. For now full code.
Discussed with son Johnnie who is listed as contact. He has another brother but he makes most decisions apparently. We discussed our her admitting issues, diagnosis and treatment plan.
Also went over regarding the severe anemia and the need of transfusion. Discussed about benefit and the risk. He is agreeable for 2 units of transfusion. Got a telephone consent from him in regards to that.
Anticipated Discharge: > 48 hours
Subjective/Interval History
-
Date of Service: January 24, 2024
Patient alert and pleasantly confused. She does not know where she is and why she is here in the hospital.
Voicing no specific complaints. Denying any pain anywhere in her body. Denies any discomfort.
Objective Data
-
Labs:
Laboratory Results
01/24/24
05:26
WBC 6.6
Hgb 10.5 L D
Hct 29.8 L
Plt Count 241
Sodium 141
Potassium 3.3 L
Chloride 106
Carbon Dioxide 24
BUN 13
Creatinine 0.5 L
Glucose 88
Calcium 8.0 L
Vital Signs:
Vital Signs
Temp Pulse Resp BP Pulse Ox
97.6 F 93 19 129/71 96
01/24/24 11:00 01/24/24 11:00 01/24/24 11:00 01/24/24 11:00 01/24/24 11:00
I&O
01/23/24 01/24/24 01/25/24
06:59 06:59 05:59
Intake Total 500 / 500
Balance 500 / 500
Review of Systems
-
Unable to obtain full review of systems at this time due to: Dementia
EENT: Denies Sore Throat or Mouth Pain
Respiratory: Denies Trouble Breathing
Cardiac: Denies Chest Pain
Abdomen/GI: Denies Abdominal Pain, Nausea or Vomiting
Neuro: Denies Dizzy or Headache
Physical Exam
-
General: Comfortable
HEENT: Moist Mucous Membranes (little more moist MM)
Respiratory: Non Labored Respirations; Negative Accessory Resp Muscle Use
Cardiac: Regular Rhythm and S1/S2
GI: Soft and Nontender
Neuro: Awake, Alert and Oriented (SELF)
Psych: Calm and Confused; Negative Agitated
Data Reviewed
-
Labs: Labs Reviewed by me
--- NOTE | 2024-01-24 15:05 | PTOTSP ---
ST Follow-Up
Pt currently presents with functional oral and pharyngeal parameters for re-initiation of PO diet of pureed solids and thin liquids.
Recommendations:
- Initiate PO diet of pureed solids, thin liquids, meds crushed in puree.
- Aspiration/reflux precautions: HOB fully upright for all PO intake and for at least an hour after PO intake; encourage PO intake; small bites/sips; alternate bites/sips.
- LINE PRODUCER to f/u re: diet tolerance, to re-assess candidacy for diet upgrades (dentures at bedside), and to determine if pt would benefit from an instrumental swallow study.
[2024-01-24 15:31] VITALS: BP 147/78
[2024-01-24] MEDS: KCL 260 MEQ IV (16:40)
[2024-01-24] MEDS: D5/0.45%NSS with KCL 10 MEQ 1000 IV (16:48)
[2024-01-24] MEDS: FLUSH (NSS) 1 FLUSH IV (16:51)
[2024-01-24] MEDS: ROCEPHIN 1000 MG IV (18:39)
[2024-01-24] MEDS: STERILE WATER FOR INJECTION 10 ML IV (18:39)
[2024-01-24] MEDS: FLUSH (NSS) 2 FLUSH IV (18:41)
[2024-01-24 19:40] VITALS: BP 151/94
[2024-01-24 23:46] VITALS: BP 167/89
[2024-01-25] MEDS: D5/0.45%NSS with KCL 10 MEQ 1000 IV ×2 (05:25→21:14)
[2024-01-25 06:00] VITALS: BMI 23.9
[2024-01-25 07:40] LABS: Hematocrit 28.7 % (37.0-47.0); Hemoglobin 10.4 g/dL (12.0-16.0); Mean Corp Hgb Conc. 36.2 g/dL (33.0-37.0); Mean Corpuscular Hgb 30.4 pg (27.0-31.0); Mean Corpuscular Volume 83.9 fL (81.0-99.0); Mean Platelet Volume 8.4 fL (7.4-10.4); Platelet Count 164 10^3/uL (130-400); Red Blood Cell Count 3.42 10^6/uL (4.20-5.40); Red Cell Dist. Width 13.8 % (11.5-14.5); White Blood Cell Count 4.1 10^3/uL (4.8-10.8)
[2024-01-25 07:45] VITALS: BP 133/74
[2024-01-25 08:21] LABS: Blood Urea Nitrogen 12 mg/dl (7-17); Calcium 7.8 mg/dl (8.4-10.2); Carbon Dioxide 20 mmol/L (22-30); Chloride 109 mmol/L (98-107); Estimated Creatinine Clearance 67 ml/min; Glucose 109 mg/dl (70-99); Potassium 3.6 mmol/L (3.5-5.1); Sodium 140 mmol/L (135-145); eGFR > 60.00
[2024-01-25] MEDS: ARICEPT 5 MG PO (09:23)
[2024-01-25] MEDS: BUSPAR 2.5 MG PO ×2 (09:23→21:13)
[2024-01-25] MEDS: FLORASTOR 250 MG PO ×2 (09:23→21:13)
[2024-01-25] MEDS: VITAMIN D3 (cholecalciferol) 25 MCG PO (09:24)
[2024-01-25] MEDS: OASIS 1 SPRAY PO ×2 (09:24→21:13)
[2024-01-25 11:34] VITALS: BP 141/100
--- NOTE | 2024-01-25 11:42 | W.PN.HOSP.TC ---
Addendum entered and electronically signed by Quentin Merino MD 01/25/24 16:21:
Sacrum Stage 2 Pressure Injury, POA
Buttock Stage 2 Pressure Injury, POA
Treatment: Silicone border foam dressing
Original Note:
Today's Communication/Plan
-
DC antibiotics
Restart atenolol
Continue to encourage oral intake and IV fluids for today
DC plannng
Assessment / Plan
Assessment / Plan
Hypotension / Lactic Acidosis, possible sepsis
Patient now with resolved lactic acidosis and hemodynamics are stable.
Abdomen is benign.EKG no acute ST/T changes. No events on monitor.
Elevated procalcitonin noted.
Blood and urine culture are neg.
In view of recent significant sialadenitis and poor hx due to dementia a CT neck was performed which shows improved sialadenitis.
-unclear source of sepsis.
- hold further abx and follow
Severe dry oral mucosa - unclear reason. No hx of Sjogrens. cw oral care , artificial saliva and hydration and follow. Improved oral mucosa MM with IV fluids and oral diet.
Normocytic Anemia
-Acute drop in H&H without external bleeding noted. Suspect probably dilutional.
-But with severe anemia transfused two units of PRBC with appropriate response
- CW heme testing of stools; no BM
- Iron stores suggest ACD
Dementia with hx of Behavioral Disturbance
-Decrease BuSpar 2.5mg BID - Hold for sedation
-Continue Aricept
Dysphagia
-Back on IDDS 4 (Pureed)
-cw Speech
- cw IV fluids till oral intake is adequate
- suspect poor intake is function of her dementia .If remains with poor intake ,to discuss GOC with family
Essential Hypertension
-Restart Atenolol
DVT proph: SCDs
Code Status: Full Code.
PT eval
DC planning
01/22 There has been a general decline with a dementia and functional capacity according to the son. I did discuss about resuscitation wishes again today-he wants to leave that to his father. For now full code.
Discussed with son Johnnie who is listed as contact. He has another brother but he makes most decisions apparently. We discussed our her admitting issues, diagnosis and treatment plan.
Also went over regarding the severe anemia and the need of transfusion. Discussed about benefit and the risk. He is agreeable for 2 units of transfusion. Got a telephone consent from him in regards to that.
Anticipated Discharge: Within 24 hours
Subjective/Interval History
-
Date of Service: January 25, 2024
Patient is alert and oriented to self.
Voices no specific complaints.
Confused without agitation per RN.
Taking little by mouth but no vomiting or diarrhea.
No overnight events.
Objective Data
-
Labs:
Laboratory Results
01/25/24 01/25/24
06:50 06:51
WBC 4.1 L
Hgb 10.4 L
Hct 28.7 L
Plt Count 164 D
Sodium 140
Potassium 3.6
Chloride 109 H
Carbon Dioxide 20 L
BUN 12
Creatinine 0.4 L
Glucose 109 H
Calcium 7.8 L
Vital Signs:
Vital Signs
Temp Pulse Resp BP Pulse Ox
97.8 F 82 18 141/100 94
01/25/24 11:34 01/25/24 11:34 01/25/24 11:34 01/25/24 11:34 01/25/24 11:34
I&O
01/24/24 01/25/24 01/26/24
07:59 06:59 06:59
Intake Total
Balance
Review of Systems
-
Unable to obtain full review of systems at this time due to: Dementia
Physical Exam
-
General: No Apparent Distress
HEENT: Moist Mucous Membranes
Respiratory: Clear to Auscultation (anteriorly) and Non Labored Respirations; Negative Accessory Resp Muscle Use
GI: Soft and Nontender
Neuro: Awake, Alert and Oriented (self)
Psych: Calm and Confused; Negative Agitated
Data Reviewed
-
CT Scan: Report Reviewed by me (CT neck)
Labs: Labs Reviewed by me
[2024-01-25] MEDS: TENORMIN 50 MG PO (12:49)
[2024-01-25] MEDS: OASIS 2 SPRAY PO ×2 (12:49→17:16)
[2024-01-25 15:54] VITALS: BP 130/81
[2024-01-25 23:30] VITALS: BP 156/96
[2024-01-26 05:52] VITALS: BMI 24.2
[2024-01-26 07:30] VITALS: BP 140/83
[2024-01-26] MEDS: ARICEPT 5 MG PO (07:49)
[2024-01-26] MEDS: OASIS 2 SPRAY PO ×3 (07:49→17:12)
[2024-01-26] MEDS: BUSPAR 2.5 MG PO ×2 (07:50→21:55)
[2024-01-26] MEDS: FLORASTOR 250 MG PO ×2 (07:51→21:55)
[2024-01-26] MEDS: VITAMIN D3 (cholecalciferol) 25 MCG PO (07:51)
[2024-01-26] MEDS: TENORMIN 50 MG PO (07:51)
[2024-01-26] MEDS: D5/0.45%NSS with KCL 10 MEQ 1000 IV ×2 (09:45→22:07)
[2024-01-26 10:03] VITALS: BP 139/88; PULSE 82
[2024-01-26] MEDS: PROTONIX PO (11:52)
--- NOTE | 2024-01-26 12:38 | CM ---
CM reviewed chart, patient seen bedside, confused. Patient not stable for discharge at this time. Updated clinicals sent in [facility] to [facility]. CM will continue to follow for all discharge planning needs.
Plan; return to [facility] when stable
[facility]
Report# [phone]
--- NOTE | 2024-01-26 12:55 | W.PN.HOSP.TC ---
Today's Communication/Plan
-
Monitor vital signs see plan
Labs pending
Continue fluids for today
Monitor p.o. intake
Assessment / Plan
Assessment / Plan
Hypotension / Lactic Acidosis, possible sepsis
Patient now with resolved lactic acidosis and hemodynamics are stable.
Abdomen is benign.EKG no acute ST/T changes. No events on monitor.
Elevated procalcitonin noted.
Blood and urine culture are neg.
In view of recent significant sialadenitis and poor hx due to dementia a CT neck was performed which shows improved sialadenitis.
-unclear source of sepsis.
- hold further abx and follow
Severe dry oral mucosa - unclear reason. No hx of Sjogrens. cw oral care , artificial saliva and hydration and follow. Improved oral mucosa MM with IV fluids and oral diet.
Normocytic Anemia
-Acute drop in H&H without external bleeding noted. Suspect probably dilutional.
-But with severe anemia transfused two units of PRBC with appropriate response
- CW heme testing of stools; no BM
- Iron stores suggest ACD
Dementia with hx of Behavioral Disturbance
-Decrease BuSpar 2.5mg BID - Hold for sedation
-Continue Aricept
Dysphagia
-Back on IDDS 4 (Pureed)
-cw Speech
- cw IV fluids till oral intake is adequate
- suspect poor intake is function of her dementia .If remains with poor intake ,to discuss GOC with family
Essential Hypertension
-Restart Atenolol
Sacrum Stage 2 Pressure Injury, POA
Buttock Stage 2 Pressure Injury, POA
Treatment: Silicone border foam dressing
DVT proph: SCDs
Code Status: Full Code.
PT eval
DC planning
01/22 There has been a general decline with a dementia and functional capacity according to the son. Dr Merino did discuss about resuscitation wishes again today-he wants to leave that to his father. For now full code.
Discussed with son Johnnie who is listed as contact. He has another brother but he makes most decisions apparently. We discussed our her admitting issues, diagnosis and treatment plan.
Also went over regarding the severe anemia and the need of transfusion. Discussed about benefit and the risk. He is agreeable for 2 units of transfusion. Got a telephone consent from him in regards to that.
General: No Apparent Distress
HEENT: Moist Mucous Membranes
Respiratory: Clear to Auscultation (anteriorly) and Non Labored Respirations; Negative Accessory Resp Muscle Use
GI: Soft and Nontender
Neuro: Awake, Alert and Oriented (self)
Psych: Calm and Confused; Negative Agitated
Anticipated Discharge: Within 24 hours
Subjective/Interval History
-
Date of Service: January 26, 2024
denies pain
Objective Data
-
Labs:
Laboratory Results
01/26/24
09:19
WBC Pending
Hgb Pending
Hct Pending
Plt Count Pending
Sodium Pending
Potassium Pending
Chloride Pending
Carbon Dioxide Pending
BUN Pending
Creatinine Pending
Glucose Pending
Calcium Pending
Vital Signs:
Vital Signs
Temp Pulse Resp BP Pulse Ox
97.6 F 77 16 140/83 96
01/26/24 07:30 01/26/24 07:30 01/26/24 07:30 01/26/24 07:30 01/26/24 07:30
I&O
01/25/24 01/26/24 01/27/24
06:59 06:59 06:59
Intake Total 100 / 100
Balance 100 / 100
[2024-01-26 13:05] LABS: % Eosinophils 4.4 % (0-6); % Immature Granulocytes 0.8 % (0-0.5); % Monocytes 6.8 % (1.7-9.3); Absolute Basophils 0.1 10^3/uL (0-0.2); Absolute Eosinophils 0.2 10^3/uL (0-0.7); Absolute Lymphocytes 1.6 10^3/uL (1.2-3.4); Absolute Monocytes 0.4 10^3/uL (0.1-0.6); Hematocrit 32.1 % (37.0-47.0); Hemoglobin 11.4 g/dL (12.0-16.0); Mean Corp Hgb Conc. 35.5 g/dL (33.0-37.0); Mean Corpuscular Hgb 30.3 pg (27.0-31.0); Mean Corpuscular Volume 85.4 fL (81.0-99.0); Mean Platelet Volume 8.2 fL (7.4-10.4); Nucleated Red Blood Cells % 0.4 %; Platelet Count 179 10^3/uL (130-400); Red Blood Cell Count 3.76 10^6/uL (4.20-5.40); Red Cell Dist. Width 13.8 % (11.5-14.5); White Blood Cell Count 5.3 10^3/uL (4.8-10.8)
[2024-01-26 13:39] LABS: Blood Urea Nitrogen 8 mg/dl (7-17); Calcium 7.7 mg/dl (8.4-10.2); Carbon Dioxide 23 mmol/L (22-30); Chloride 102 mmol/L (98-107); Estimated Creatinine Clearance 67 ml/min; Glucose 111 mg/dl (70-99); Potassium 3.7 mmol/L (3.5-5.1); Sodium 134 mmol/L (135-145); eGFR > 60.00
--- NOTE | 2024-01-26 18:49 | PTCARENOTE ---
PCT placed dentures in pt's mouth during oral care at around 1300 today. At around 1400, pct noticed that dentures were not in pt's mouth or anywhere to be found in pt's room. RN checked pt's trashcans and all over room. RN Called kitchen and they
did not see dentures on her lunch tray or any other tray. Kitchen said they will look out for dentures. By end of shift, dentures still have not turned up.
[2024-01-26] MEDS: OASIS 1 SPRAY PO (21:55)
[2024-01-26 23:30] VITALS: BP 155/87
[2024-01-26 23:55] VITALS: BP 155/87
[2024-01-27 06:00] VITALS: BMI 23.9
[2024-01-27 07:00] VITALS: BP 150/78
[2024-01-27] MEDS: TENORMIN 50 MG PO (08:03)
[2024-01-27] MEDS: VITAMIN D3 (cholecalciferol) 25 MCG PO (08:03)
[2024-01-27] MEDS: FLORASTOR 250 MG PO ×2 (08:03→19:36)
[2024-01-27] MEDS: BUSPAR 2.5 MG PO ×2 (08:04→19:33)
[2024-01-27] MEDS: ARICEPT 5 MG PO (08:05)
[2024-01-27] MEDS: OASIS 1 SPRAY PO ×4 (08:05→19:36)
[2024-01-27] MEDS: PROTONIX 40 MG PO (08:05)
[2024-01-27] MEDS: DESENEX/MITRAZOL/ZEASORB 1 APPLIC TOPICAL (08:06)
--- NOTE | 2024-01-27 09:57 | PTOTSP ---
Dysphagia Therapy
Patient presents with signs concerning for oral/pharyngeal dysphagia and possible aspiration with thin liquids. To determine if thicker liquids are warranted, consider video swallow study pending patient/family goals of care.
Recommend:
1. Thin purees (i.e., yogurt, cream of wheat, pudding)
2. Medications crushed in puree
3. Aspiration Risk Hydration Protocol - Single sips of water for comfort after oral care, with supervision
4. Video swallow study to determine if thickened liquids are warranted pending patient/family goals of care
[2024-01-27 09:59] LABS: % Basophils 0.9 % (0-2); % Eosinophils 6.4 % (0-6); % Immature Granulocytes 0.7 % (0-0.5); % Lymphocytes 41.5 % (20.5-51.1); % Monocytes 6.6 % (1.7-9.3); % Neutrophils 43.9 % (42.2-75.2); Absolute Eosinophils 0.3 10^3/uL (0-0.7); Absolute Lymphocytes 1.9 10^3/uL (1.2-3.4); Absolute Monocytes 0.3 10^3/uL (0.1-0.6); Hematocrit 30.2 % (37.0-47.0); Hemoglobin 10.6 g/dL (12.0-16.0); Mean Corp Hgb Conc. 35.1 g/dL (33.0-37.0); Mean Corpuscular Volume 82.7 fL (81.0-99.0); Nucleated Red Blood Cells % 0 %; Platelet Count 147 10^3/uL (130-400); Red Blood Cell Count 3.65 10^6/uL (4.20-5.40); Red Cell Dist. Width 13.7 % (11.5-14.5); White Blood Cell Count 4.6 10^3/uL (4.8-10.8)
[2024-01-27 10:24] LABS: Blood Urea Nitrogen 5 mg/dl (7-17); Calcium 7.3 mg/dl (8.4-10.2); Carbon Dioxide 26 mmol/L (22-30); Chloride 101 mmol/L (98-107); Estimated Creatinine Clearance 67 ml/min; Glucose 106 mg/dl (70-99); Sodium 135 mmol/L (135-145); eGFR > 60.00
--- NOTE | 2024-01-27 10:54 | CM ---
Chart reviewed and patient to return to [facility] when stable.
[facility]
Report# [phone]

Plan; Transfer back to [facility] when stable.
--- NOTE | 2024-01-27 11:30 | W.PN.HOSP.TC ---
Today's Communication/Plan
-
monitor vitals
see plan
Discussed goals of care with son and he will speak to other family members and decide, currently full code
Replete potassium
Assessment / Plan
Assessment / Plan
Hypotension / Lactic Acidosis, possible sepsis
Patient now with resolved lactic acidosis and hemodynamics are stable.
Abdomen is benign.EKG no acute ST/T changes. No events on monitor.
Elevated procalcitonin noted.
Blood and urine culture are neg.
In view of recent significant sialadenitis and poor hx due to dementia a CT neck was performed which shows improved sialadenitis.
-unclear source of sepsis.
- hold further abx and follow
Severe dry oral mucosa - unclear reason. No hx of Sjogrens. cw oral care , artificial saliva and hydration and follow. Improved oral mucosa MM with IV fluids and oral diet.
Normocytic Anemia
-Acute drop in H&H without external bleeding noted. Suspect probably dilutional.
-But with severe anemia transfused two units of PRBC with appropriate response
- Iron stores suggest ACD
Dementia with hx of Behavioral Disturbance
-Decrease BuSpar 2.5mg BID - Hold for sedation
-Continue Aricept
Dysphagia, suspect secondary to worsening dementia
-Back on IDDS 4 (Pureed)
-cw Speech
- cw IV fluids till oral intake is adequate
- suspect poor intake is function of her worsening dementia .If remains with poor intake ,to discuss GOC with family. Discussed goals of care with son 01/26 and he will discuss with other family members. Currently patient is listed as full code.
Essential Hypertension
-Restart Atenolol
Hypokalemia
Replete
Sacrum Stage 2 Pressure Injury, POA
Buttock Stage 2 Pressure Injury, POA
Treatment: Silicone border foam dressing
DVT proph: SCDs
Code Status: Full Code.
PT eval
01/22 There has been a general decline with a dementia and functional capacity according to the son. Dr Merino did discuss about resuscitation wishes again today-he wants to leave that to his father. For now full code.
01/26 discussed patient worsening clinical status along with worsening dementia with ongoing dysphagia. Son Johnnie will speak to other family members and will decide on further care/CODE STATUS. Prognosis poor given worsening dementia
Discussed with son Johnnie who is listed as contact. He has another brother but he makes most decisions apparently. We discussed our her admitting issues, diagnosis and treatment plan.
Also went over regarding the severe anemia and the need of transfusion. Discussed about benefit and the risk. He is agreeable for 2 units of transfusion. Got a telephone consent from him in regards to that.
General: No Apparent Distress
HEENT: Moist Mucous Membranes
Respiratory: Clear to Auscultation (anteriorly) and Non Labored Respirations; Negative Accessory Resp Muscle Use
GI: Soft and Nontender
Neuro: Awake, Alert and Oriented (self)
Psych: Calm and Confused; Negative Agitated
I spent a total of 52 minutes with the patient or on the floor. More than 50% of this time involved counseling and coordination of care.
Anticipated Discharge: > 48 hours
Subjective/Interval History
-
Date of Service: January 27, 2024
denies pain
Objective Data
-
Labs:
Laboratory Results
01/27/24
09:43
WBC 4.6 L
Hgb 10.6 L
Hct 30.2 L
Plt Count 147
Sodium 135
Potassium 3.0 L
Chloride 101
Carbon Dioxide 26
BUN 5 L
Creatinine 0.4 L
Glucose 106 H
Calcium 7.3 L
Vital Signs:
Vital Signs
Temp Pulse Resp BP Pulse Ox
97.4 F 71 18 150/78 94
01/27/24 07:00 01/27/24 07:00 01/27/24 07:00 01/27/24 07:00 01/27/24 08:00
I&O
01/26/24 01/27/24 01/28/24
06:59 06:59 06:59
Intake Total 100 / 100 360 / 360
Balance 100 / 100 360 / 360
[2024-01-27] MEDS: KCL 270 MEQ IV (11:43)
[2024-01-27 15:00] VITALS: BP 135/76
[2024-01-27 23:15] VITALS: BP 140/83
[2024-01-28 06:00] VITALS: BMI 23.4
[2024-01-28] MEDS: BUSPAR 2.5 MG PO ×2 (08:12→20:21)
[2024-01-28] MEDS: FLORASTOR 250 MG PO ×2 (08:13→20:21)
[2024-01-28] MEDS: PROTONIX 40 MG PO (08:13)
[2024-01-28] MEDS: TENORMIN 50 MG PO (08:13)
[2024-01-28] MEDS: OASIS 1 SPRAY PO ×4 (08:13→22:17)
[2024-01-28] MEDS: VITAMIN D3 (cholecalciferol) 25 MCG PO (08:13)
[2024-01-28] MEDS: DESENEX/MITRAZOL/ZEASORB 1 APPLIC TOPICAL (08:14)
[2024-01-28] MEDS: ARICEPT 5 MG PO (08:14)
[2024-01-28 08:21] VITALS: BP 158/84
[2024-01-28 11:16] LABS: % Basophils 0.9 % (0-2); % Eosinophils 6.4 % (0-6); % Immature Granulocytes 0.7 % (0-0.5); % Lymphocytes 36.3 % (20.5-51.1); % Monocytes 7.5 % (1.7-9.3); % Neutrophils 48.2 % (42.2-75.2); Absolute Basophils 0.1 10^3/uL (0-0.2); Absolute Eosinophils 0.3 10^3/uL (0-0.7); Absolute Lymphocytes 1.9 10^3/uL (1.2-3.4); Absolute Monocytes 0.4 10^3/uL (0.1-0.6); Absolute Neutrophils 2.6 10^3/uL (1.4-6.5); Hematocrit 29.6 % (37.0-47.0); Hemoglobin 10.3 g/dL (12.0-16.0); Mean Corp Hgb Conc. 34.8 g/dL (33.0-37.0); Mean Corpuscular Hgb 28.9 pg (27.0-31.0); Mean Corpuscular Volume 83.1 fL (81.0-99.0); Mean Platelet Volume 8.3 fL (7.4-10.4); Nucleated Red Blood Cells % 0 %; Platelet Count 144 10^3/uL (130-400); Red Blood Cell Count 3.56 10^6/uL (4.20-5.40); White Blood Cell Count 5.3 10^3/uL (4.8-10.8)
[2024-01-28 11:29] LABS: Blood Urea Nitrogen 9 mg/dl (7-17); Calcium 7.3 mg/dl (8.4-10.2); Carbon Dioxide 25 mmol/L (22-30); Chloride 103 mmol/L (98-107); Estimated Creatinine Clearance 67 ml/min; Glucose 87 mg/dl (70-99); Potassium 3.6 mmol/L (3.5-5.1); Sodium 137 mmol/L (135-145); eGFR > 60.00
--- NOTE | 2024-01-28 12:48 | W.PN.HOSP.TC ---
Today's Communication/Plan
-
Monitor vital signs and see plan
Prognosis likely guarded, not meeting nutrition demand, limited p.o. intake
Spoke with son again today, patient is now DNR
Family will talk again and will let us know regarding hospice evaluate
Assessment / Plan
Assessment / Plan
Hypotension / Lactic Acidosis, possible sepsis
Patient now with resolved lactic acidosis and hemodynamics are stable.
Abdomen is benign.EKG no acute ST/T changes. No events on monitor.
Elevated procalcitonin noted.
Blood and urine culture are neg.
In view of recent significant sialadenitis and poor hx due to dementia a CT neck was performed which shows improved sialadenitis.
-unclear source of sepsis.
- hold further abx and follow
Severe dry oral mucosa - unclear reason. No hx of Sjogrens. cw oral care , artificial saliva and hydration and follow. Improved oral mucosa MM with IV fluids and oral diet.
Normocytic Anemia
-Acute drop in H&H without external bleeding noted. Suspect probably dilutional.
-But with severe anemia transfused two units of PRBC with appropriate response
- Iron stores suggest ACD
Dementia with hx of Behavioral Disturbance
-Decrease BuSpar 2.5mg BID - Hold for sedation
-Continue Aricept
Dysphagia, suspect secondary to worsening dementia
-Back on IDDS 4 (Pureed)
-cw Speech
- cw IV fluids till oral intake is adequate
- suspect poor intake is function of her worsening dementia .If remains with poor intake ,to discuss GOC with family. Discussed goals of care with son 01/26 and he will discuss with other family members. Currently patient is listed as full code.
Essential Hypertension
-Restart Atenolol
Hypokalemia
Replete
Sacrum Stage 2 Pressure Injury, POA
Buttock Stage 2 Pressure Injury, POA
Treatment: Silicone border foam dressing
DVT proph: SCDs
Code Status: DNR; discussed with Patient's Son
PT eval
01/22 There has been a general decline with a dementia and functional capacity according to the son. Dr Merino did discuss about resuscitation wishes again today-he wants to leave that to his father. For now full code.
01/26 discussed patient worsening clinical status along with worsening dementia with ongoing dysphagia. Son Johnnie will speak to other family members and will decide on further care/CODE STATUS. Prognosis poor given worsening dementia
01/27 son Johnnie discussed with other family members and patient's spouse, decision now is DNR. He will also speak to them regarding hospice evaluation
Discussed with son Johnnie who is listed as contact. He has another brother but he makes most decisions apparently. We discussed our her admitting issues, diagnosis and treatment plan.
Also went over regarding the severe anemia and the need of transfusion. Discussed about benefit and the risk. He is agreeable for 2 units of transfusion. Got a telephone consent from him in regards to that.
General: No Apparent Distress
HEENT: Moist Mucous Membranes
Respiratory: Clear to Auscultation (anteriorly) and Non Labored Respirations; Negative Accessory Resp Muscle Use
GI: Soft and Nontender
Neuro: Awake, Alert and Oriented (self)
Psych: Calm and Confused; Negative Agitated
I spent a total of 51 minutes with the patient or on the floor. More than 50% of this time involved counseling and coordination of care.
Anticipated Discharge: 24 - 48 hours
Subjective/Interval History
-
Date of Service: January 28, 2024
denies pain
Objective Data
-
Labs:
Laboratory Results
01/28/24
10:58
WBC 5.3
Hgb 10.3 L
Hct 29.6 L
Plt Count 144
Sodium 137
Potassium 3.6
Chloride 103
Carbon Dioxide 25
BUN 9
Creatinine 0.4 L
Glucose 87
Calcium 7.3 L
Vital Signs:
Vital Signs
Temp Pulse Resp BP Pulse Ox
98.5 F 85 16 158/84 96
01/28/24 08:21 01/28/24 08:21 01/28/24 08:21 01/28/24 08:21 01/28/24 08:21
I&O
01/27/24 01/28/24 01/29/24
06:59 06:59 06:59
Intake Total 360 / 360 450 / 450
Balance 360 / 360 450 / 450
--- NOTE | 2024-01-28 14:33 | CM ---
CM reviewed chart, family to discuss goals of care/ hopsice evaluation. CM will continue to follow for all discharge planning needs.
Plan; awaiting decision from family regarding hospice, patient LTC resident at [facility]
Report# [phone]
[2024-01-28 15:12] VITALS: BP 161/98
--- NOTE | 2024-01-28 15:52 | PTOTSP ---
Speech Language Pathology
Pt seen for dysphagia tx. Sleeping upon arrival, but easily roused. Lunch sitting at bedside, untouched. Pt did not eat any meals yesterday. Family discussing GOC. Pt declined all solids, stating she had no appetite. Accepting of liquids. Pt
consumed approximately 4 ounces of liquids via straw with no overt signs of aspiration. Improved tolerance of thin liquids noted compared to last session.
Recommend:
(1) IDDSI Level 4 (Puree) and Thin Liquids
(2) Aspiration precautions: sit upright, full supervision with assist as needed, slow rate, eat only when alert
(3) Meds crushed in puree
(4) PHOTOCOMPOSITION KEYBOARD OPERATOR to continue to follow
[2024-01-28 23:00] VITALS: BP 146/74
[2024-01-29 05:31] VITALS: BMI 23.4
[2024-01-29 07:15] VITALS: BP 160/85
[2024-01-29 07:23] LABS: % Basophils 1.3 % (0-2); % Eosinophils 7.3 % (0-6); % Immature Granulocytes 1.5 % (0-0.5); % Lymphocytes 47.6 % (20.5-51.1); % Monocytes 9.2 % (1.7-9.3); % Neutrophils 33.1 % (42.2-75.2); Absolute Basophils 0.1 10^3/uL (0-0.2); Absolute Eosinophils 0.3 10^3/uL (0-0.7); Absolute Immature Granulocytes 0.1 10^3/uL (0-0.05); Absolute Lymphocytes 2.2 10^3/uL (1.2-3.4); Absolute Monocytes 0.4 10^3/uL (0.1-0.6); Absolute Neutrophils 1.5 10^3/uL (1.4-6.5); Hematocrit 30.1 % (37.0-47.0); Hemoglobin 10.6 g/dL (12.0-16.0); Mean Corp Hgb Conc. 35.2 g/dL (33.0-37.0); Mean Corpuscular Hgb 30.4 pg (27.0-31.0); Mean Corpuscular Volume 86.2 fL (81.0-99.0); Mean Platelet Volume 8.2 fL (7.4-10.4); Nucleated Red Blood Cells % 0 %; Platelet Count 116 10^3/uL (130-400); Red Blood Cell Count 3.49 10^6/uL (4.20-5.40); White Blood Cell Count 4.7 10^3/uL (4.8-10.8)
[2024-01-29 07:49] LABS: Blood Urea Nitrogen 12 mg/dl (7-17); Calcium 7.5 mg/dl (8.4-10.2); Carbon Dioxide 26 mmol/L (22-30); Chloride 101 mmol/L (98-107); Estimated Creatinine Clearance 67 ml/min; Glucose 79 mg/dl (70-99); Potassium 3.8 mmol/L (3.5-5.1); Sodium 135 mmol/L (135-145); eGFR > 60.00
[2024-01-29] MEDS: TENORMIN 50 MG PO (08:23)
[2024-01-29] MEDS: VITAMIN D3 (cholecalciferol) 25 MCG PO (08:24)
[2024-01-29] MEDS: BUSPAR 2.5 MG PO ×2 (08:24→20:54)
[2024-01-29] MEDS: FLORASTOR 250 MG PO ×2 (08:24→20:54)
[2024-01-29] MEDS: ARICEPT 5 MG PO (08:24)
[2024-01-29] MEDS: PROTONIX 40 MG PO (08:24)
[2024-01-29] MEDS: OASIS 1 SPRAY PO ×4 (08:25→20:55)
--- NOTE | 2024-01-29 12:49 | W.PN.HOSP.TC ---
Today's Communication/Plan
-
Monitor vital signs see plan
bench manager consult for hospice evaluation
Encourage p.o. intake
Discussed with family
Assessment / Plan
Assessment / Plan
Hypotension / Lactic Acidosis, possible sepsis
Patient now with resolved lactic acidosis and hemodynamics are stable.
Abdomen is benign.EKG no acute ST/T changes. No events on monitor.
Elevated procalcitonin noted.
Blood and urine culture are neg.
In view of recent significant sialadenitis and poor hx due to dementia a CT neck was performed which shows improved sialadenitis.
-unclear source of sepsis.
- hold further abx and follow
Severe dry oral mucosa - unclear reason. No hx of Sjogrens. cw oral care , artificial saliva and hydration and follow. Improved oral mucosa MM with IV fluids and oral diet.
Normocytic Anemia
-Acute drop in H&H without external bleeding noted. Suspect probably dilutional.
-But with severe anemia transfused two units of PRBC with appropriate response
- Iron stores suggest ACD
Dementia with hx of Behavioral Disturbance
-Decrease BuSpar 2.5mg BID - Hold for sedation
-Continue Aricept
Dysphagia, suspect secondary to worsening dementia
-Back on IDDS 4 (Pureed)
-cw Speech
- cw IV fluids till oral intake is adequate
- suspect poor intake is function of her worsening dementia .If remains with poor intake ,to discuss GOC with family. Discussed goals of care with son 01/26 and he will discuss with other family members. Currently patient is listed as full code.
Essential Hypertension
-Restart Atenolol
Hypokalemia
Replete
Sacrum Stage 2 Pressure Injury, POA
Buttock Stage 2 Pressure Injury, POA
Treatment: Silicone border foam dressing
DVT proph: SCDs
Code Status: DNR; discussed with Patient's Son
PT eval
01/22 There has been a general decline with a dementia and functional capacity according to the son. Dr Merino did discuss about resuscitation wishes again today-he wants to leave that to his father. For now full code.
01/26 discussed patient worsening clinical status along with worsening dementia with ongoing dysphagia. Igor Blair will speak to other family members and will decide on further care/CODE STATUS. Prognosis poor given worsening dementia
01/27 igor Blair discussed with other family members and patient's spouse, decision now is DNR. He will also speak to them regarding hospice evaluation
01/28 Discussed with Igor Blair spoke with family members and they are interested in hospice. bench manager consulted
Discussed with igor Blair who is listed as contact. He has another brother but he makes most decisions apparently. We discussed our her admitting issues, diagnosis and treatment plan.
Also went over regarding the severe anemia and the need of transfusion. Discussed about benefit and the risk. He is agreeable for 2 units of transfusion. Got a telephone consent from him in regards to that.
General: No Apparent Distress
HEENT: Moist Mucous Membranes
Respiratory: Clear to Auscultation (anteriorly) and Non Labored Respirations; Negative Accessory Resp Muscle Use
GI: Soft and Nontender
Neuro: Awake, Alert and Oriented (self)
Psych: Calm and Confused; Negative Agitated
I spent a total of 51 minutes with the patient or on the floor. More than 50% of this time involved counseling and coordination of care.
Anticipated Discharge: Within 24 hours
Subjective/Interval History
-
Date of Service: January 29, 2024
denies pain
Objective Data
-
Labs:
Laboratory Results
01/29/24
06:57
WBC 4.7 L
Hgb 10.6 L
Hct 30.1 L
Plt Count 116 L
Sodium 135
Potassium 3.8
Chloride 101
Carbon Dioxide 26
BUN 12
Creatinine 0.4 L
Glucose 79
Calcium 7.5 L
Vital Signs:
Vital Signs
Temp Pulse Resp BP Pulse Ox
97.8 F 77 16 160/85 96
01/29/24 07:15 01/29/24 07:15 01/29/24 07:15 01/29/24 07:15 01/29/24 07:15
I&O
01/28/24 01/29/24 01/30/24
06:59 06:59 06:59
Intake Total 450 / 450 120 / 120
Balance 450 / 450 120 / 120
--- NOTE | 2024-01-29 13:46 | CM ---
CM received consult for hospice, phone call placed to son, Chuck. CM discussed per Param Layton, have contacts with [facility], [place], [facility]. Chuck requesting email with hospice agencies so he can review options with
family- will email to [email or web address]. Trisha at [facility] updated. CM will continue to follow for all discharge planning needs.
Plan; return to LTC with hospice- family to review hospice agencies.
[2024-01-29 15:15] VITALS: BP 163/80
[2024-01-29 23:24] VITALS: BP 149/97
[2024-01-30 06:00] VITALS: BMI 23.2
[2024-01-30 07:00] VITALS: BP 171/81
[2024-01-30 07:50] LABS: % Basophils 0.9 % (0-2); % Eosinophils 5.4 % (0-6); % Immature Granulocytes 1.9 % (0-0.5); % Lymphocytes 36.9 % (20.5-51.1); % Monocytes 16.2 % (1.7-9.3); % Neutrophils 38.7 % (42.2-75.2); Absolute Eosinophils 0.2 10^3/uL (0-0.7); Absolute Immature Granulocytes 0.1 10^3/uL (0-0.05); Absolute Lymphocytes 1.6 10^3/uL (1.2-3.4); Absolute Monocytes 0.7 10^3/uL (0.1-0.6); Absolute Neutrophils 1.6 10^3/uL (1.4-6.5); Hematocrit 33.7 % (37.0-47.0); Hemoglobin 10.9 g/dL (12.0-16.0); Mean Corp Hgb Conc. 32.3 g/dL (33.0-37.0); Mean Corpuscular Volume 92.8 fL (81.0-99.0); Nucleated Red Blood Cells % 0 %; Red Blood Cell Count 3.63 10^6/uL (4.20-5.40); Red Cell Dist. Width 14.3 % (11.5-14.5); White Blood Cell Count 4.3 10^3/uL (4.8-10.8)
[2024-01-30] MEDS: FLORASTOR 250 MG PO (07:59)
[2024-01-30] MEDS: ARICEPT 5 MG PO (07:59)
[2024-01-30] MEDS: TENORMIN 50 MG PO (07:59)
[2024-01-30] MEDS: BUSPAR 2.5 MG PO (07:59)
[2024-01-30] MEDS: PROTONIX 40 MG PO (07:59)
[2024-01-30] MEDS: VITAMIN D3 (cholecalciferol) 25 MCG PO (07:59)
[2024-01-30] MEDS: OASIS 1 SPRAY PO ×2 (08:00→17:33)
[2024-01-30 08:10] LABS: Blood Urea Nitrogen 14 mg/dl (7-17); Calcium 7.7 mg/dl (8.4-10.2); Carbon Dioxide 21 mmol/L (22-30); Chloride 102 mmol/L (98-107); Estimated Creatinine Clearance 67 ml/min; Glucose 64 mg/dl (70-99); Potassium 3.7 mmol/L (3.5-5.1); Sodium 135 mmol/L (135-145); eGFR > 60.00
[2024-01-30 09:35] LABS: Mean Platelet Volume 8.6 fL (7.4-10.4); Platelet Count 89 10^3/uL (130-400)
--- NOTE | 2024-01-30 12:52 | CM ---
Addendum entered by Aysha Castaneda 01/30/24 15:17:
Patient scheduled for 6:30 p.m. ambulance transport, IMM reviewed with sonJohnnie, verbally agrees.
Addendum entered by Aysha Castaneda 01/30/24 14:20:
[facility] will admit patient tomorrow, [facility] will accept patient this evening, patient will require ambulance transport. OOH DNR signed in chart.
Plan; return to [facility] this evening, [facility] admit tomorrow.
;[facility]
Report# [phone]

Original Note:
CM spoke with Johnnie birch, family would like Hospice. Spoke with Trisha at [facility] Admissions, will need one time contract for Hospice, updated Moni with Hospice. CM will continue to follow for all discharge planning needs, await next
steps for contract.
Plan; Return to [facility] with Hospice, awaiting contract for Hospice.
--- NOTE | 2024-01-30 13:02 | HOSPNOTE ---
Addendum entered by Moni Dickey RN 01/30/24 14:11:
The plan is for patient to be discharged this evening and back to [facility]. We will admit the patient tomorrow 01/30 onto hospice services. Spoke with son and he is in agreement with the above plan. OOH DNR will be needed for transport. CM aware
and Attending.
Original Note:
Called [facility] since the family is choosing hospice. I called and left a message for the admissions since the facility is requesting a contract from [facility]. I asked the admissions office to call back as soon as possible. Will await a
call back. CM updated.
--- NOTE | 2024-01-30 13:40 | W.PN.HOSP.TC ---
Addendum entered and electronically signed by Alvarado Burdick MD 01/30/24 14:50:
Pancytopenia
Addendum entered and electronically signed by Alvarado Burdick MD 01/30/24 14:18:
Plan for discharge today with transition to hospice
Time of discharge 37 minutes
Original Note:
Today's Communication/Plan
-
Monitor vital signs
see plan
Awaiting disposition, family interested in hospice. corporate communications manager aware
Encourage p.o. intake
Assessment / Plan
Assessment / Plan
Hypotension / Lactic Acidosis, possible sepsis
Patient now with resolved lactic acidosis and hemodynamics are stable.
Abdomen is benign.EKG no acute ST/T changes. No events on monitor.
Elevated procalcitonin noted.
Blood and urine culture are neg.
In view of recent significant sialadenitis and poor hx due to dementia a CT neck was performed which shows improved sialadenitis.
-unclear source of sepsis.
- hold further abx and follow
Severe dry oral mucosa - unclear reason. No hx of Sjogrens. cw oral care , artificial saliva and hydration and follow. Improved oral mucosa MM with IV fluids and oral diet.
Normocytic Anemia
-Acute drop in H&H without external bleeding noted. Suspect probably dilutional.
-But with severe anemia transfused two units of PRBC with appropriate response
- Iron stores suggest ACD
Dementia with hx of Behavioral Disturbance
-Decrease BuSpar 2.5mg BID - Hold for sedation
-Continue Aricept
Dysphagia, suspect secondary to worsening dementia
-Back on IDDS 4 (Pureed)
-cw Speech
- cw IV fluids till oral intake is adequate
- suspect poor intake is function of her worsening dementia .goals of care discussion, patient is now DNR. Family interested in hospice. corporate communications manager aware
Thrombocytopenia
Monitor
Essential Hypertension
-Restart Atenolol
Hypokalemia
Replete
Sacrum Stage 2 Pressure Injury, POA
Buttock Stage 2 Pressure Injury, POA
Treatment: Silicone border foam dressing
DVT proph: SCDs
Code Status: DNR; discussed with Patient's Son
PT eval
01/22 There has been a general decline with a dementia and functional capacity according to the son. Dr Merino did discuss about resuscitation wishes again today-he wants to leave that to his father. For now full code.
01/26 discussed patient worsening clinical status along with worsening dementia with ongoing dysphagia. Son Johnnie will speak to other family members and will decide on further care/CODE STATUS. Prognosis poor given worsening dementia
01/27 son Johnnie discussed with other family members and patient's spouse, decision now is DNR. He will also speak to them regarding hospice evaluation
01/28 Discussed with Eyal Blair spoke with family members and they are interested in hospice. corporate communications manager consulted
Discussed with eyal Blair who is listed as contact. He has another brother but he makes most decisions apparently. We discussed our her admitting issues, diagnosis and treatment plan.
Also went over regarding the severe anemia and the need of transfusion. Discussed about benefit and the risk. He is agreeable for 2 units of transfusion. Got a telephone consent from him in regards to that.
General: No Apparent Distress
HEENT: Moist Mucous Membranes
Respiratory: Clear to Auscultation (anteriorly) and Non Labored Respirations; Negative Accessory Resp Muscle Use
GI: Soft and Nontender
Neuro: Awake, Alert and Oriented (self)
Psych: Calm and Confused; Negative Agitated
Anticipated Discharge: Today
Subjective/Interval History
-
Date of Service: January 30, 2024
denies pain
Objective Data
-
Labs:
Laboratory Results
01/30/24
07:06
WBC 4.3 L
Hgb 10.9 L
Hct 33.7 L
Plt Count 89 L D
Sodium 135
Potassium 3.7
Chloride 102
Carbon Dioxide 21 L
BUN 14
Creatinine 0.4 L
Glucose 64 L
Calcium 7.7 L
Vital Signs:
Vital Signs
Temp Pulse Resp BP Pulse Ox
97.7 F 76 18 171/81 95
01/30/24 07:00 01/30/24 07:59 01/30/24 07:00 01/30/24 07:59 01/30/24 07:00
I&O
01/29/24 01/30/24 01/31/24
06:59 06:59 06:59
Intake Total 120 / 120 480 / 480
Output Total 400 / 400
Balance 120 / 120 80 / 80
--- NOTE | 2024-01-30 14:18 | W.DCSUMMARY ---
Discharge Summary
Discharge Data
Date of Admission: 01/21/24
Date of Discharge: 01/30/24
-
Pending Results: No
Hospital Course
83-year-old female with past medical history of essential hypertension, advanced dementia, anemia came to the hospital with hypotension and lactic acidosis concern for sepsis. Patient culture continue to be negative and she was monitored off
antibiotics. Her hospital course was complicated with failure to thrive secondary to her worsening dementia. She was seen by speech therapy who recommended pur�ed diet. Patient continued to decline over time and had very limited oral intake.
Given these findings family decided to change her CODE STATUS to DNR and also wanted to pursue hospice. Patient was then later discharged back to [facility] with plan for hospice.
Discharge Plan
-
Patient Disposition: Other
Discharge Diagnosis/Procedures: Hypotension/lactic acidosis
Dehydration
Anemia
Dementia with history of behavioral disturbances
Dysphagia secondary to worsening dementia
Advanced dementia
Diet: Other diet
Additional Diets: Pur�ed diet
Activity: As tolerated
Driving Restrictions: Not until seen by your Dr
Bathing Restrictions: None
Other Services: Hospice
Referrals:
Tereso Weinstein MD [Family Provider] - in less than 1 week
Prescriptions:
New
miconazole nitrate [Miconazorb AF] 2 % Powder
1 applic topical PRN PRN (Reason: RASH) Qty: 0 0RF
Continued
hydroxyzine HCl 25 mg tablet
25 mg PO Q6HPRN PRN (Reason: anxiety management)
Saccharomyces boulardii 250 mg Capsule
250 mg PO BID Qty: 0 0RF
buspirone 5 mg tablet
5 mg PO BID Qty: 0 0RF
donepezil 5 mg Tablet
5 mg PO DAILY Qty: 0 0RF
atenolol 50 MG tablet
50 mg PO DAILY Qty: 0 0RF
cholecalciferol (vitamin D3) [Vitamin D3] 25 mcg (1,000 unit) capsule
25 mcg PO DAILY Qty: 30 0RF
magnesium hydroxide [Milk of Magnesia] 400 mg/5 mL Suspension
2,400 mg PO DAILYPRN PRN (Reason: constipation)
omeprazole 20 mg Tablet,Delayed Release (Dr/Ec)
20 mg PO DAILY
Cavilon Durable Barrier 1.3 % Cream
1 applic TOPICAL TID
acetaminophen 325 mg tablet
650 mg PO Q4HPRN PRN (Reason: mild pain)
Discharge Orders:
Discharge Patient (As Directed); Ordered 01/30/24
Ordered By: Alvarado Burdick
Discharge Date and Time
Discharge Date/Time: 01/30/24 19:18
Print Language: CROATIAN
--- NOTE | 2024-01-30 14:43 | PN.CDI ---
CDI
- -
CDI:
Physician Documentation Request
Admit Date: 01/21/24 13:45
Dear Doctor Gennaro,
Clinical Indicators:
Patient admitted with hypotension, possible sepsis.
01/29 PN, 'Anemia...Thrombocytopenia'
WBC, RBC, Plt counts:
01/29/24 01/30/24
06:57 07:06
WBC 4.7 L 4.3 L
RBC 3.49 L 3.63 L
Plt Count 116 L 89 L D
Based on the above, could you clarify in the progress notes, the appropriate diagnosis, if significant, that supports the above abnormalities and additional evaluation, monitoring and/or treatment rendered:
Pancytopenia
Anemia/Thrombocytopenia only
Other
Use of terms such as suspected, likely, concern for, or probable (associated with a specific diagnosis that is being evaluated, monitored, or treated as if it exists) are acceptable and can be coded in the inpatient setting, when documented at the
time of discharge.
Thank you,
Jyotsna Ceballos RN BSN
CDI Specialist
available via tiger text
Please use your independent medical judgment in providing your response.
[2024-01-30] MEDS: OASIS PO (14:47)
[2024-01-30 15:00] VITALS: BP 149/75
== END 2024-01-30 19:18 | disposition hospice, inpatient (51) | DRG 872 ==
LOC: 4 WEST ACU 13:45
PROVIDERS: Internal Medicine; Physician Assistant Medical; ADMITTING PHYSICIAN Internal Medicine; ATTENDING PHYSICIAN Internal Medicine; EMERGENCY PHYSICIAN Student in an Organized Health Care Education/Training Program; FAMILY PHYSICIAN Family Medicine
PROC: 30233N1 Transfusion of Nonautologous Red Blood Cells into Peripheral Vein, Percutaneous Approach (ICD-10-PCS; 2024-01-23)
DX: A41.9 Sepsis, unspecified organism (principal); F02.818 Dementia in other diseases classified elsewhere, unspecified severity, with other behavioral disturbance; E87.20 Acidosis, unspecified; N39.0 Urinary tract infection, site not specified; D61.818 Other pancytopenia; Z66 Do not resuscitate; Z51.5 Encounter for palliative care; I10 Essential (primary) hypertension; G30.9 Alzheimer's disease, unspecified; E87.6 Hypokalemia; I95.9 Hypotension, unspecified; E86.0 Dehydration; D64.9 Anemia, unspecified; R13.10 Dysphagia, unspecified; R62.7 Adult failure to thrive; L89.152 Pressure ulcer of sacral region, stage 2; L89.302 Pressure ulcer of unspecified buttock, stage 2; Z79.899 Other long term (current) drug therapy; Z11.52 Encounter for screening for COVID-19
CPT/HCPCS: 51701; 70491; 71046; 80048; 80053; 81003; 81015; 82728; 83540; 83550; 83605; 83735; 84145; 85025; 85027; 86850; 86900; 86901; 86920; 87040; 87070; 87086; 87811; 92526; 92610; 93005; 96361; 96374; 97110; 97162; 97167; 97530; 99285; J3480; P9016; Q9967